=== PATIENT | female | born 1970 | race African-American/Black ===

== ENCOUNTER 2016-03-30 08:18 | Outpatient (CLI) | payer OTHER | END 2016-03-30 08:19 | disposition home or self-care (01) | DX: Z79.52 Long term (current) use of systemic steroids (principal) ==

== ENCOUNTER 2016-10-12 07:12 | Outpatient (CLI) | payer OTHER ==
--- NOTE | 2016-10-13 15:37 | Mammography Report ---
DIGITAL SCREENING MAMMOGRAM: 10/12/2016 CLINICAL INDICATION: A 46-year-old with family history of breast cancer, for screening. COMPARISON: 07/2015, 10/2013, 09/2011. TECHNIQUE: Routine CC and MLO projections were obtained of the breasts. Bilateral laterally exaggera tate craniocaudal views. FINDINGS: The breasts again demonstrate scattered fibroglandular densities bilaterally. Coarse and p unctate, typically benign calcifications are present. No suspicious masses, clustered microcalcificat ions, or regions of architectural distortion are identified. IMPRESSION: BENIGN FINDINGS. RECOMMENDATION: ROUTINE ANNUAL SCREENING UNLESS OTHERWISE CLINICALLY INDICATED. BIRADS CATEGORY 2-BENIGN FINDINGS. STANDARD QUALIFYING STATEMENTS 1. This examination was reviewed with the aid of Computer-Aided Detection (CAD). 2. A negative or benign imaging report should not delay biopsy if clinically suspicious findings are present. Consider surgical consultation if warranted. More than 5% of cancers are not identified by i maging. 3. Dense breasts may obscure an underlying neoplasm. JOB #: [id number] EXT JOB #:[id number]
== END 2016-10-12 07:13 | disposition home or self-care (01) ==
LOC: DI 07:12
PROVIDERS: ATTEND Physician Assistant Medical
DX: Z12.31 Encounter for screening mammogram for malignant neoplasm of breast (principal); Z80.3 Family history of malignant neoplasm of breast
CPT/HCPCS: 77067

== ENCOUNTER 2016-11-02 15:53 | Outpatient (CLI) | payer OTHER ==
--- NOTE | 2016-11-03 09:43 | XRAY Report ---
TWO-VIEW THORACIC SPINE: 11/02/2016 CLINICAL INDICATION: Back pain. FINDINGS: Frontal and lateral views of the thoracic spine demonstrate mild degenerative disk disease , with minimal degenerative dextroscoliosis. There is no evidence of compression fracture. No wolf zina hematoma is seen. IMPRESSION: MILD DEGENERATIVE CHANGES. JOB #: [id number] EXT JOB #:[id number]
== END 2016-11-02 15:54 | disposition home or self-care (01) ==
LOC: DI.N 15:53
PROVIDERS: ATTEND Family Medicine
DX: M54.6 Pain in thoracic spine (principal)
CPT/HCPCS: 72070

== ENCOUNTER 2018-10-11 08:27 | Outpatient (CLI) | payer OTHER ==
--- NOTE | 2018-10-11 11:34 | Ultrasound Report ---
Reason: FIBROIDS, UTERUS Procedure Date: 10/11/2018 Accession Number: [id number] / [id number] Procedure: US - Pelvic w/Transvaginal CPT Code: FULL RESULT: EXAM: PELVIC ULTRASOUND EXAM DATE: 10/11/2018 09:48 AM. CLINICAL HISTORY: Follow-up fibroids, irregular periods. COMPARISON: 12/20/2010. TECHNIQUE: Realtime transabdominal pelvic scan performed to identify the uterus and adnexa and as an overview of other pelvic structures, followed by transvaginal scan to provide greater detail of the uterus and adnexa, with static image documentation. FINDINGS: Uterus: 9.3 x 5.6 x 7.0 cm, volume 191 cc. Anteverted position. Normal overall size and echotexture. Masses: 1. Posterior mid intramural fibroid 2.1 x 1.6 x 1.9 cm. Newly identified. 2. Anterior left mid intramural fibroid 3.0 x 2.7 x 3.2 cm. Previously measured 1.2 cm. 3. A posterior lower uterine segment fibroid seen previously is no longer identified. Endometrium: 7 mm. Normal. Cervix: Unremarkable. Right Ovary: Not visualized. Left Ovary: Not visualized. Free Fluid: None. Other: None. IMPRESSION: 1. New 2.1 cm intramural fibroid and interval enlargement of 3.2 cm intramural fibroid. 2. Smaller lower uterine segment fibroid seen previously no longer identified. 3. Ovaries not visualized bilaterally, likely obscured by bowel gas. RADIA
== END 2018-10-11 08:28 | disposition home or self-care (01) ==
LOC: DI 08:27
PROVIDERS: ATTEND Obstetrics & Gynecology
DX: D25.1 Intramural leiomyoma of uterus (principal)
CPT/HCPCS: 76830; 76856

== ENCOUNTER 2018-10-29 12:30 | Outpatient (CLI) | payer OTHER ==
[2018-10-29 13:09] LABS: BASOPHILS % (AUTO) 0.5 %; EOSINOPHILS # (AUTO) 0.1 10^3/uL (0.0-0.7); EOSINOPHILS % (AUTO) 0.9 %; HGB - HEMOGLOBIN 12.9 g/dL (12.0-16.0); LYMPHOCYTES # (AUTO) 1.3 10^3/uL (1.5-3.5); LYMPHOCYTES % (AUTO) 19.9 %; MEAN CORPUSCULAR HEMOGLOBIN 29.3 pg (27.0-31.0); MEAN CORPUSCULAR HGB CONC 31.8 g/dL (32.0-36.0); MEAN CORPUSCULAR VOLUME 92.1 fL (81.0-99.0); MEAN PLATELET VOLUME 9.7 fL (7.9-10.8); MONOCYTES # (AUTO) 0.4 10^3/uL (0.0-1.0); MONOCYTES % (AUTO) 6.7 %; NEUTROPHILS # (AUTO) 4.7 10^3/uL (1.5-6.6); NEUTROPHILS % (AUTO) 71.7 %; PLT - PLATELET COUNT 288 10^3/uL (130-450); RED BLOOD COUNT 4.41 10^6/uL (4.20-5.40); RED CELL DISTRIBUTION WIDTH 13.2 % (12.0-15.0); WHITE BLOOD COUNT 6.5 x10^3/uL (4.8-10.8)
[2018-10-29 13:22] LABS: ALBUMIN 3.4 g/dL (3.2-5.5); ALBUMIN/GLOBULIN RATIO 1.1 (1.0-2.2); BILIRUBIN,TOTAL 0.4 mg/dL (0.2-1.0); CALCIUM 8.6 mg/dL (8.5-10.3); CREATININE 0.7 mg/dL (0.4-1.0); TOTAL PROTEIN 6.6 g/dL (6.7-8.2)
== END 2018-10-29 12:31 | disposition home or self-care (01) ==
LOC: LAB 12:30
PROVIDERS: ATTEND Obstetrics & Gynecology
DX: Z01.812 Encounter for preprocedural laboratory examination (principal); N92.0 Excessive and frequent menstruation with regular cycle; D25.9 Leiomyoma of uterus, unspecified
CPT/HCPCS: 36415; 80053; 85025; 86850; 86900; 86901; 86920

== ENCOUNTER 2018-10-30 09:01 | Inpatient (IN) | payer OTHER ==
[~2018-10-30 09:01] MED LIST: LACTATED RINGERS 1,000 ML IV ONE; SODIUM CHLORIDE 0.9% 250 ML IV ONE
[2018-10-30] MEDS ORDERED: CEFAZOLIN SODIUM IN 0.9 % NACL 2 GM/100 ML BAG IV ONE (09:52)
[2018-10-30] MEDS ORDERED: LACTATED RINGERS 1,000 ML IV ONE ×5 (09:58→21:19)
[2018-10-30] MEDS: PHENAZOPYRIDINE 100 MG TABLET PO ONE ×2 (10:13→18:48)
[2018-10-30 10:50] LABS: HCG UR QUAL NEGATIVE
[2018-10-30] MEDS ORDERED: GABAPENTIN 400 MG CAPSULE ONE (11:40)
[2018-10-30] MEDS ORDERED: CELECOXIB 100 MG CAPSULE PO ONE (11:41)
[2018-10-30] MEDS ORDERED: ACETAMINOPHEN 1,000 MG/100 ML 100 ML IV ONE (11:41)
[2018-10-30] MEDS ORDERED: LIDOCAINE-MPF 2% 5 ML VIAL IM ONE (11:42)
[2018-10-30] MEDS ORDERED: ONDANSETRON 4 MG/2 ML VIAL IVP ONE (11:42)
--- NOTE | 2018-10-30 12:04 | ANESTHESIA ---
Pre-Anesthesia VS, & Labs - Diagnosis menorrhagia, fibroid uterus - Procedure total laparoscopic hysterectomy Vital Signs: Temp Pulse Resp BP Pulse Ox 36.7 C 72 16 135/84 H 100 10/30/18 09:38 10/30/18 09:38 10/30/18 09:38 10/30/18 09:38 10/30/18 09:38 Height 5 ft 5 in Weight (kg) 108.5 kg - NPO >8 hours - Is Patient ?: No Home Medications and Allergies Home Medications: Ambulatory Orders Lisinopril 5 mg PO DAILY 10/29/18 Ustekinumab [Stelara] 90 mg IM 10/29/18 hydroCHLOROthiazide [Hydrochlorothiazide] 25 mg PO DAILY 10/29/18 Balsalazide Disodium [Colazal] 2,250 mg PO DAILY 10/30/18 Lisinopril 5 mg PO DAILY 10/29/18 Ustekinumab [Stelara] 90 mg IM 10/29/18 hydroCHLOROthiazide [Hydrochlorothiazide] 25 mg PO DAILY 10/29/18 Balsalazide Disodium [Colazal] 2,250 mg PO DAILY 10/30/18 Allergies/Adverse Reactions: Allergies Allergy/AdvReac Type Severity Reaction Status Date / Time No Known Drug Allergies Allergy Verified 10/29/18 12:39 Anes History & Medical History - Anesthetic History Anesthesia Complications: reports: No previous complications - Medical History Cardiovascular: reports: Hypertension Pulmonary: reports: None Gastrointestinal: reports: Crohn's disease Urinary: reports: None Musculoskeletal: reports: Osteoarthritis Endocrine/Autoimmune: reports: None Skin: reports: None Smoking Status: Never smoker - Surgical History Gynecologic: section, Tubal ligation Exam General: Alert Dental: Dentures full Upper, Partials Lower Mouth Opening: Greater than 4 Fingerbreadths Mallampati classification: II Thyromental Distance: greater than 6 cm Respiratory: Lungs clear, Normal breath sounds Cardiovascular: Regular rate, Normal S1, Normal S2 Plan Anesthesia Type: General Consent for Procedure(s) Verified and Reviewed: Yes Code Status: Attempt Resuscitation ASA classification: 2-Mild systemic disease Is this case an emergency?: No
[2018-10-30] MEDS ORDERED: METHYLENE BLUE 0.5% 50 MG/10 ML AMPULE ONE (12:11)
[2018-10-30] MEDS ORDERED: BUPIVACAINE 0.25%-EPI 1:200000 PF 30 ML VIAL ONE (12:11)
[2018-10-30] MEDS ORDERED: POTASSIUM CHLOR 10 MEQ/100 ML 10 MEQ/100 ML BAG IV ONE ×2 (12:24→13:25)
[2018-10-30] MEDS ORDERED: BUPIVACAINE 0.25%-EPI 1:200000 PF 30 ML VIAL SUBQ ONE (14:48)
[2018-10-30] MEDS ORDERED: SUGAMMADEX 200 MG/2 ML VIAL IVP ONE (17:20)
[2018-10-30] MEDS ORDERED: HYDROmorphone 0.5 MG/0.5 ML SYRINGE IVP PRN (17:27)
[2018-10-30] MEDS ORDERED: ONDANSETRON 4 MG/2 ML VIAL IVP PRN (17:27)
[2018-10-30] MEDS ORDERED: LORazepam 2 MG/ML VIAL IVP PRN (17:27)
--- NOTE | 2018-10-30 17:33 | OPERATIVE REPORT ---
Operative Report - General Procedure Date: 10/30/18 Planned Procedure: TLH BS Cysto Pre-Op Diagnosis: menorrhagia, fibroids, Hx of CHERYL III Procedure Performed: TLH BS Cysto Post Op Diagnosis: menorrhagia, fibroids, Hx of CHERYL III - Procedure Note Primary Surgeon: King ross MD Secondary Surgeon: Jess Singh MD Anesthesia Provider: Jhoan Slater CRNA Anesthesia Technique: General ET tube Pathology: Uterus tubes and bilateral ovarian cysts fluid. IV Fluids (mL): 1,800 Estimated Blood Loss (mL): 150 Urine Output (mL): 750 Complications: None
[2018-10-30] MEDS ORDERED: ACETAMINOPHEN 500 MG TABLET PO SCH (18:00)
--- NOTE | 2018-10-30 18:32 | OPERATIVE REPORT ---
DATE OF SERVICE: 10/30/2018 Physician: King Rodriguez MD PREOPERATIVE DIAGNOSES 1. Menorrhagia. 2. Fibroid uterus. 3. History of severe cervical dysplasia. POSTOPERATIVE DIAGNOSES 1. Menorrhagia. 2. Fibroid uterus. 3. History of severe cervical dysplasia. 4. Bilateral ovarian cysts. PROCEDURE PERFORMED: Laparoscopic vaginal hysterectomy with bilateral salpingectomy, drainage of ova aster cysts, and cystoscopy. SURGEON: King Rodriguez MD TACKING MACHINE OPERATOR: Belen Zambrano MD ANESTHESIA: Jhoan Slater CRNA. ANESTHETIC: General via endotracheal tube. ESTIMATED BLOOD LOSS: 150 mL IV FLUIDS: 1800 mL URINE OUTPUT: 750 mL DESCRIPTION OF PROCEDURE: Following adequate endotracheal anesthesia, patient placed in dorsal litho uriel position in Pietro stirrups. At this point, pelvic examination was performed, but was limited se condary to abdominal wall thickness. She was then prepped and draped in the usual fashion. A timeou t was performed, which concerns were addressed. These include the fact she had a large fibroid uteru s and the possibility of need to proceed on with an open procedure. At this point, the procedure was commenced. A speculum was placed in the vagina. The cervix was vis ualized, grasped with a single-tooth tenaculum. At this point, it was dilated to size 14 mm, and the n a VCare large cup was placed in the vagina. At this point, the dog food shredder operator's gloves were changed, and then following a stab wound in subumbilical area and following local anesthesia with 0.25% Marcaine, a 5 mm port was placed under direct visualization. Left and right lower quadrant ports were placed following local anesthetic and then skin incision. These were both placed under direct visualization . At this point, the uterus was encountered and noted to be filling the lower portion of the abdomen ; however, the sidewalls appeared to be free and available for laparoscopic instrumentation. It was decided to proceed on. Photographs were taken of the abdomen. She had evidence of numerous adhesion s around the right hepatic or liver area. There was also evidence of some adhesions in the pelvic ar ea. These were released without difficulty. The right cornu was grasped and then utilizing the Liga Sure, the uteroovarian ligament was cauterized and transected. The fallopian tube was cauterized and transected at its incision to the uterus. The round ligament was cauterized and transected with the LigaSure. At this point, there was an adhesion on the right anterior uterine wall. This was taken down with LigaSure. There was some difficulty with oozing. The broad ligament was cauterized, trans ected, and then with difficulty bleeding on the right side of the uterus this was cauterized, irrigat ed and transected. Eventually utilizing the LigaSure, hemostasis was achieved. The left cornu was o perated on by Dr. Zambrano. The utero-ovarian ligament was cauterized and transected. The round lig ament was cauterized and transected, and then the fallopian tube was cauterized and transected. The uterine vessels on the left hand side were cauterized and transected, all with the LigaSure. The ant erior leaf of the broad ligament was opened all the way down to the lower uterine segment and then tr aversed across the lower uterine segment. This was done to help develop a bladder flap. The posteri or leaf of the broad ligament was then cauterized and transected. This was carried all the way down to the internal os of the cervix. Because of ovarian cyst on the left side, the ovarian cyst was mechellecarrol villatoro utilizing laparoscopic needle. Roughly 12 mL of fluid was removed. There was a cyst on the righ t hand side, which was also drained with a laparoscopic needle, and roughly 10 mL were removed from t he side. The bladder was then pushed free from the lower uterine segment. Utilizing LigaSure as wel l as blunt dissection, this was carried all the way down to the cup of the VCare. The left hand side was then cauterized and transected on the transverse cervical ligament all the way down to the cup o f the VCare. The right hand side was treated in identical fashion. Harmonic scalpel was then used t o amputate the cervix from the apex of the vagina. Care was taken to try and reside as high in the v agina as possible to minimize shortening of the vagina. The anterior portion of the vagina was opene d with the Harmonic. On the posterior side, however, the LigaSure was utilized because of the close proximity of the bowel. This was done all the way until the attachments of the uterus were totally t ransected with the LigaSure. The uterus was then brought down into the vagina. At this point, the a pex of the vagina was closed utilizing Endo Stitch with V-Loc suture. This closed the apex of the va prashant well with a good pneumatic seal. At this point, the bilateral tubes were removed utilizing Liga Sure and brought through the right lower quadrant port, which had been extended to a 10 mm port. At this point, the area was inspected. Pressure was allowed to decrease, and there was no evidence of a ny large bleeders at this time. Hemostatic gauze was placed in the surgical wounds on the vagina. T he right lower quadrant incision was closed utilizing a Santiago-Sam with 0 Vicryl. Good suture c losure was noted. At this point, a cystoscope was performed, which showed evidence of good efflux of urine from both ureters. The incisions were closed utilizing 4-0 Monocryl subcuticular and then Thor mabond. The instruments and the uterus were removed from the vagina. The patient tolerated the proc edure well and was taken to recovery in stable condition. Sponge and needle counts were correct. TD: 10/30/2018 17:48
[2018-10-30] MEDS: KETOROLAC 30 MG/ML VIAL IVP PRN (18:44)
[2018-10-30] MEDS ORDERED: KETOROLAC 30 MG/ML VIAL ONE (18:52)
[2018-10-30] MEDS ORDERED: ONDANSETRON 4 MG/2 ML VIAL ONE (18:52)
[2018-10-30] MEDS ORDERED: SODIUM CHLORIDE FLUSH 0.9% 10 ML SYRINGE ONE ×3 (20:48→22:13)
[2018-10-30] MEDS ORDERED: SODIUM CHLORIDE 0.9% 1,000 ML IV ONE ×2 (21:28→22:13)
[2018-10-30] MEDS ORDERED: SODIUM CHLORIDE 0.9% 500 ML IV ONE (21:37)
[2018-10-30] MEDS: DOCUSATE SODIUM 100 MG CAPSULE PO SCH (21:41)
[2018-10-30 21:43] LABS: BASOPHILS % (AUTO) 0.1 %; HGB - HEMOGLOBIN 9.9 g/dL (12.0-16.0); LYMPHOCYTES # (AUTO) 0.5 10^3/uL (1.5-3.5); LYMPHOCYTES % (AUTO) 3.9 %; MEAN CORPUSCULAR HEMOGLOBIN 28.4 pg (27.0-31.0); MEAN CORPUSCULAR HGB CONC 30.2 g/dL (32.0-36.0); MEAN CORPUSCULAR VOLUME 94.3 fL (81.0-99.0); MEAN PLATELET VOLUME 10.4 fL (7.9-10.8); MONOCYTES # (AUTO) 0.3 10^3/uL (0.0-1.0); MONOCYTES % (AUTO) 2.5 %; NEUTROPHILS # (AUTO) 12.7 10^3/uL (1.5-6.6); NEUTROPHILS % (AUTO) 93.1 %; PLT - PLATELET COUNT 300 10^3/uL (130-450); RED BLOOD COUNT 3.48 10^6/uL (4.20-5.40); RED CELL DISTRIBUTION WIDTH 13.3 % (12.0-15.0); WHITE BLOOD COUNT 13.6 x10^3/uL (4.8-10.8)
[2018-10-30] MEDS ORDERED: SODIUM CHLORIDE 0.9% 500 ML ONE (22:13)
[2018-10-30] MEDS ORDERED: SODIUM CHLORIDE 0.9% 250 ML IV ONE (22:26)
[2018-10-30] MEDS: SODIUM CHLORIDE 0.9% 1,000 ML IV ONE ×2 (22:35→23:17)
--- NOTE | 2018-10-30 23:37 | ANESTHESIA ---
Pre-Anesthesia VS, & Labs - Diagnosis post op bleeding - Procedure diagnostic laparotomy, evaluation of post op bleed Vital Signs: Temp Pulse Resp BP Pulse Ox 36.2 C L 131 H 16 87/59 L 100 10/30/18 22:57 10/30/18 23:01 10/30/18 22:57 10/30/18 23:01 10/30/18 22:57 Height 5 ft 5 in Weight (kg) 108.5 kg - NPO Other (clears) - Is Patient ?: No - Lab Results Current Lab Results: Laboratory Tests 10/30/18 21:40: WBC 13.6 H, RBC 3.48 L, Hgb 9.9 L, Hct 32.8 L, MCV 94.3, MCH 28.4, MCHC 30.2 L, RDW 13.3, Plt Count 300, MPV 10.4, Neut # (Auto) 12.7 H, Lymph # (Auto) 0.5 L, [place] # (Auto) 0.3, Eos # (Auto) 0.0, Baso # (Auto) 0.0, Absolute Nucleated RBC 0.00, Nucleated RBC % 0.0 Fish Bones: 10/30/18 21:40 Home Medications and Allergies Home Medications: Ambulatory Orders Lisinopril 5 mg PO DAILY 10/29/18 Ustekinumab [Stelara] 90 mg IM 10/29/18 hydroCHLOROthiazide [Hydrochlorothiazide] 25 mg PO DAILY 10/29/18 Balsalazide Disodium [Colazal] 2,250 mg PO DAILY 10/30/18 Active Medications Acetaminophen (Tylenol) 1,000 mg PO Q8H [facility] Last Admin: 10/30/18 18:59 Dose: Not Given Docusate Sodium (Colace 100mg Capsule) 100 mg PO BID [facility] Last Admin: 10/30/18 21:41 Dose: Not Given Hydromorphone HCl (Dilaudid Inj Syringe) 0.5 mg IVP Q30M PRN PRN Reason: Breakthrough Pain Sodium Chloride (Normal Saline 0.9%) 1,000 mls @ 150 mls/hr IV .Q6H40M [facility] Sodium Chloride (Normal Saline 0.9%) 1,000 mls @ 999 mls/hr IV ONCE ONE Stop: 10/30/18 23:50 Last Admin: 10/30/18 22:35 Dose: 999 mls/hr Ketorolac Tromethamine (Toradol Inj (30mg)) 30 mg IVP Q6HR PRN PRN Reason: PAIN Stop: 11/04/18 17:27 Last Admin: 10/30/18 18:44 Dose: 30 mg Lorazepam (Ativan Inj (Vial)) 0.5 mg IVP Q2H PRN PRN Reason: Anxiety Ondansetron HCl (Zofran Inj) 4 mg IVP Q6HR PRN PRN Reason: Nausea / Vomiting Last Admin: 10/30/18 18:44 Dose: 4 mg Oxycodone HCl (Roxicodone) 10 mg PO Q4HR PRN PRN Reason: PAIN Lisinopril 5 mg PO DAILY 10/29/18 Ustekinumab [Stelara] 90 mg IM 10/29/18 hydroCHLOROthiazide [Hydrochlorothiazide] 25 mg PO DAILY 10/29/18 Balsalazide Disodium [Colazal] 2,250 mg PO DAILY 10/30/18 Allergies/Adverse Reactions: Allergies Allergy/AdvReac Type Severity Reaction Status Date / Time No Known Drug Allergies Allergy Verified 10/29/18 12:39 Anes History & Medical History - Anesthetic History Anesthesia Complications: reports: No previous complications - Medical History Cardiovascular: reports: Hypertension Pulmonary: reports: None Gastrointestinal: reports: Crohn's disease Urinary: reports: None Musculoskeletal: reports: Osteoarthritis Endocrine/Autoimmune: reports: None Skin: reports: None Smoking Status: Never smoker - Surgical History Gynecologic: section, Tubal ligation Exam Dental: Dentures full Upper, Partials Lower Mouth Opening: Greater than 4 Fingerbreadths Mallampati classification: II Thyromental Distance: greater than 6 cm Respiratory: Lungs clear Cardiovascular: Regular rate Plan Anesthesia Type: General Consent for Procedure(s) Verified and Reviewed: No Code Status: Attempt Resuscitation ASA classification: 2-Mild systemic disease Is this case an emergency?: Yes (consent for GA earlier today, emergent case)
--- NOTE | 2018-10-31 01:58 | OPERATIVE REPORT ---
Operative Report - General Procedure Date: 10/30/18 Planned Procedure: exploratory Laparotomy Pre-Op Diagnosis: Post Op bleeding following a TLH with BS and cysto Procedure Performed: Exploratory Laparotomy with irrigation of the Abdomin and over sewing the vaginal cuff Post Op Diagnosis: Post operative bleeding - Procedure Note Primary Surgeon: King Rodriguez MD Secondary Surgeon: Jess Singh MD Anesthesia Provider: Maye Colon CRNA Anesthesia Technique: General ET tube Pathology: None IV Fluids (mL): 1,200 (3 units packed red blood cells) Estimated Blood Loss (mL): 1,200 Urine Output (mL): 150 Indications: Shock Findings: 1200 ml clott in the pelvis and abdomin
[2018-10-31] MEDS ORDERED: SODIUM CHLORIDE 0.9% 200 ML IV ONE (02:07)
--- NOTE | 2018-10-31 02:14 | CONSULTATION NOTE ---
Referring Provider Name of Referring Provider:: Dr. King Rodriguez Consult Date: 10/31/18 Chief Complaint - Chief Complaint Chief Complaint: Fatigue History of Present Illness - Admitted From Admitted From:: Home - History Obtained From Records Reviewed: Yes History obtained from: Patient, Staff Rn Physician, EMR - History of Present Illness HPI Comment/Other: Medicine was consulted by Dr. King Rodriguez for ICU admission for acute blood loss anemia This is a 48 year old female with a past medical history significant for hypertension, crohn's disease, and uterine fibroids who was admitted yesterday for a same day surgery. The patient underwent a laparoscopic vaginal hysterectomy with bilateral salpingectomy and drainage of ovarian cysts. This was done for menorrhagia, uterine fibroids and a history of cervical dysplasia. EBL of the surgery was approximately 150mL and the patient received 1800mL of crystalloid intraoperatively. The patient tolerated the procedure well and was monitored on the floors postoperatively. While on the floors, she became hypotensive and tachycardic. Repeat labs showed a hemoglobin of 9.9 which was decreased from 12.9 the day prior. There was concern for ongoing hemorrhage and she was taken back to the OR last night for an exploratory laparotomy. There was no active bleeding noted but approximately 1200mL of clot was evacuated. The patient received 3 units of PRBC and 1 unit of FFP. After closure, she received tranexamic acid and is currently receiving a fourth unit of PRBC and a second unit of FFP. Medicine was consulted to admit the patient to the ICU for closer monitoring given the acute blood loss anemia. She currently reports feeling better than after the first procedure. She states she was very fatigued at that time and could barely open her eyes. She reports her pain is currently well controlled. Denies fevers, dyspnea, and chest pain. History - Past Medical History Cardiovascular: reports: Hypertension Respiratory: reports: None Endocrine/Autoimmune: reports: None GI: reports: Crohn's disease PROTOHISTORIAN: reports: Ovarian cysts, Fibroids : reports: None HEENT: reports: None Psych: reports: None Musculoskeletal: reports: Osteoarthritis Derm: reports: None MRSA Hx?: No - Past Surgical History /PROTOHISTORIAN: reports: section, Tubal ligation - Family & Social History Family History Comment/Other: She reports that her son has type 1 diabetes and her mother had breast cancer. She has a first cousin who has hemophilia. 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 She does not smoke, drink alcohol or use illicit drugs. Meds/Allgy - Home Medications Home Medications: Ambulatory Orders Medication Instructions Recorded Confirmed Lisinopril 5 mg PO DAILY 10/29/18 10/30/18 Ustekinumab [Stelara] 90 mg IM 10/29/18 hydroCHLOROthiazide 25 mg PO DAILY 10/29/18 10/30/18 [Hydrochlorothiazide] Balsalazide Disodium [Colazal] 2,250 mg PO DAILY 10/30/18 10/30/18 - Allergies Allergies/Adverse Reactions: Allergies Allergy/AdvReac Type Severity Reaction Status Date / Time No Known Drug Allergies Allergy Verified 10/29/18 12:39 Review of Systems - Constitutional Constitutional: reports: Fatigue, Weakness. denies: Fever, Chills - Cardiovascular Cariovascular: denies: Chest pain, Lightheadedness - Respiratory Respiratory: denies: SOB at rest, SOB with exertion - Gastrointestinal Gastrointestinal: reports: Abdominal pain. denies: Bloody stools, Nausea, Vomiting - Neurological Neurological: denies: General weakness, Focal weakness, Dizziness - Hematologic/Lymphatic Hematologic/Lymphatic: denies: Bleeding tendencies - All Other Systems All Other Systems: reports: Reviewed and negative Exam - Vital Signs Vital Signs: Vital Signs x48h Temp Pulse Resp BP Pulse Ox 10/31/18 01:54 36.2 C L 111 H 16 98/51 L 100 10/30/18 23:20 36.4 C L 113 H 16 92/64 10/30/18 23:15 36.4 C L 108 H 18 89/64 L 10/30/18 23:05 110 H 82/52 L 10/30/18 23:01 131 H 87/59 L 10/30/18 22:57 36.2 C L 119 H 16 89/52 L 100 10/30/18 22:54 36.2 C L 125 H 16 85/55 L 10/30/18 22:52 117 H 16 85/55 L 10/30/18 22:49 36.6 C 115 H 16 78/49 L 100 10/30/18 22:47 36.5 C 111 H 14 78/49 L 10/30/18 21:52 102 H 16 88/36 L 100 10/30/18 21:45 95 82/53 L 10/30/18 21:43 110 H 80/54 L 10/30/18 21:39 103 H 85/51 L 99 10/30/18 21:35 112 H 17 77/50 L 98 10/30/18 21:33 108 H 77/50 L 10/30/18 21:32 109 H 87/59 L 10/30/18 21:29 110 H 90/49 L 10/30/18 21:20 106 H 15 72/48 L 10/30/18 20:15 36.9 C 101 H 16 94/56 L 99 10/30/18 19:45 36.7 C 98 16 99/56 L 99 10/30/18 19:15 36.8 C 77 16 104/57 L 99 10/30/18 19:00 36.7 C 77 18 113/64 99 10/30/18 18:45 36.7 C 78 16 121/74 100 10/30/18 18:30 37.4 C 73 16 117/63 100 10/30/18 18:10 73 14 107/60 99 10/30/18 18:07 37.3 C 77 14 108/58 L 100 - Physical Exam General Appearance: positive: No acute distress, Alert Eyes Bilateral: positive: Normal inspection ENT: positive: ENT inspection nml Neck: positive: Nml inspection Respiratory: positive: No respiratory distress. negative: Wheezes, Rales, Rhonchi Cardiovascular: positive: Regular rate & rhythm, No murmur, Tachycardia. negative: Bradycardia Abdomen: positive: Nml bowel sounds, Tenderness (In the suprapubic region), Other (Wound vac in place). negative: Guarding, Rebound Skin: positive: No rash, Warm, Dry Extremities: positive: Full ROM, No pedal edema Neurologic/Psychiatric: positive: Oriented x3, Motor nml, Other (No focal motor deficits). negative: Disoriented to person, Disoriented to place, Disoriented to time, Weakness Conclusion/Plan - Diagnosis Diagnosis: 1) Acute blood loss anemia. 2) Hypotension. 3) Crohn's disease - Plan Plan: She had acute blood loss anemia after her laparoscopic hysterectomy and required an exploratory laparotomy. 1200mL of clot was evacuated during the ex-lap and there was no further evidence of bleeding. Her blood pressure is currently stable in the 120's as she is receiving her fourth unit of PRBC and second unit of FFP. Will check a CBC and INR after these transfusions are completed. Will trend CBC every 8 hours. Check BMP to evaluate her calcium given the number of transfusions she has received. Hold chemical DVT prophylaxis. SCD's for DVT prophylaxis. Monitor for further evidence of hemorrhage. Maintain NPO status for now. Will advance to clear liquid diet if no evidence of further bleeding. She was initially hypotensive and tachycardic secondary to her hemorrhage. This has responded well to transfusions of PRBC's and FFP. Continue to hold home antihypertensives and monitor vital signs. Will hold her home medications for crohn's at this time. Can restart her Colazal if she remains hemodynamically stable with no signs of bleeding. Stelara will be resumed on outpatient basis. - Lab Results Lab results reviewed: Yes Fish Bones: 10/30/18 21:40 - Diagnostic Imaging Results Diagnostic Imaging Results: positive: Final report reviewed
[2018-10-31] MEDS: SODIUM CHLORIDE 0.9% 1,000 ML IV SCH ×2 (03:38→10:40)
[2018-10-31] MEDS ORDERED: SODIUM CHLORIDE FLUSH 0.9% 10 ML SYRINGE ONE ×2 (03:51→18:16)
--- NOTE | 2018-10-31 03:57 | XRAY Report ---
Reason: central line placement Procedure Date: 10/30/2018 Accession Number: [id number] / [id number] Procedure: XR - Chest for Line Placement CPT Code: FULL RESULT: EXAM: CHEST RADIOGRAPHY EXAM DATE: 10/30/2018 10:50 PM. CLINICAL HISTORY: Central line placement. COMPARISON: None. TECHNIQUE: 1 view. FINDINGS: Lungs/Pleura: No alveolar consolidation or pleural effusion seen. No pneumothorax. Mediastinum: Within exam limitations, the cardiomediastinal contour is normal. Other: Right internal jugular catheter tip in the right atrium, approximately 4 cm beyond the cavoatrial junction. IMPRESSION: 1. Right IJ catheter tip in the right atrium. RADIA
--- NOTE | 2018-10-31 03:58 | XRAY Report ---
Reason: central line placement, 1st adjustment Procedure Date: 10/30/2018 Accession Number: [id number] / [id number] Procedure: XR - Chest for Line Placement CPT Code: FULL RESULT: EXAM: CHEST RADIOGRAPHY EXAM DATE: 10/30/2018 10:51 PM. CLINICAL HISTORY: Central line placement, 1st adjustment. COMPARISON: CHEST 1 VIEW 10/30/2018 10:30 PM. TECHNIQUE: 1 view. FINDINGS: Lungs/Pleura: No focal opacities evident. No pleural effusion. No pneumothorax. Mediastinum: Within exam limitations, the cardiomediastinal contour is normal. Other: Right IJ catheter tip has been adjusted and is now at or just beyond the cavoatrial junction. IMPRESSION: 1. Right IJ catheter tip at or just beyond the cavoatrial junction. RADIA
[2018-10-31 05:28] LABS: BASOPHILS % (AUTO) 0.2 %; EOSINOPHILS # (AUTO) 0.1 10^3/uL (0.0-0.7); EOSINOPHILS % (AUTO) 0.8 %; HGB - HEMOGLOBIN 11.2 g/dL (12.0-16.0); LYMPHOCYTES # (AUTO) 0.8 10^3/uL (1.5-3.5); MEAN CORPUSCULAR HGB CONC 33.8 g/dL (32.0-36.0); MEAN CORPUSCULAR VOLUME 91.7 fL (81.0-99.0); MEAN PLATELET VOLUME 10.1 fL (7.9-10.8); MONOCYTES # (AUTO) 1.1 10^3/uL (0.0-1.0); MONOCYTES % (AUTO) 8.6 %; NEUTROPHILS # (AUTO) 10.8 10^3/uL (1.5-6.6); PLT - PLATELET COUNT 159 10^3/uL (130-450); RED BLOOD COUNT 3.61 10^6/uL (4.20-5.40); RED CELL DISTRIBUTION WIDTH 14.4 % (12.0-15.0); WHITE BLOOD COUNT 12.9 x10^3/uL (4.8-10.8)
[2018-10-31 05:33] LABS: INR 1.2 (0.8-1.2); PT - PROTHROMBIN TIME 13.7 secs (9.9-12.6)
[2018-10-31 05:39] LABS: CALCIUM 7.7 mg/dL (8.5-10.3); CREATININE 0.7 mg/dL (0.4-1.0); MAGNESIUM 1.6 mg/dL (1.7-2.8); PHOSPHORUS 3.8 mg/dL (2.5-4.6)
[2018-10-31 06:41] LABS: VBG PH 7.319 (7.31-7.41)
--- NOTE | 2018-10-31 06:58 | PROCEDURE REPORT ---
DATE OF SERVICE: 10/31/2018 Physician: King Rodriguez MD PREOPERATIVE DIAGNOSES 1. Intraabdominal bleeding. 2. Shock. POSTOPERATIVE DIAGNOSES 1. Intraabdominal bleeding. 2. Shock PROCEDURE: Exploratory laparotomy with removal of intra-abdominal clot and oversewing the apex of the vagina. SURGEON: King Rodriguez MD EDITOR FARM JOURNAL: Belen Zambrano MD ANESTHESIA: Maye Colon CRNA ANESTHETIC: General via endotracheal tube. ESTIMATED BLOOD LOSS: She had 1200 mL of blood found in the belly. There were no obvious active bleeding sites. She received 1200 mL of IV fluids. She received 3 units of packed red blood cells. She received 1 unit fresh frozen plasma, 1 gram TXA. She had 150 mL urine output. DESCRIPTION OF PROCEDURE: Because of patient's unstable condition, she was taken back to the operating room in an expeditious fashion. She received ephedrine preoperatively. Patient was placed in on the operating table and, following adequate endotracheal anesthesia, patient was prepped and draped in the usual fashion. Timeout was performed. At this point, a Pfannenstiel incision was carried down through her old scar, down through the subcutaneous tissue to the fascia. The fascia was incised transversely. Then, using both blunt and sharp dissection, the rectus fascia was dissected free from the rectus. There was some bleeding on a couple perforators. These were treated with electrocautery. The peritoneum was entered high. At this point, a large amount of clot and blood was found in the abdominal cavity. This appeared to be predominantly in the pelvis, as well as the lower abdomen. This was removed out both manually, as well as the suction. An O'Aleksandar-O'Garcia retractor was placed in the abdominal cavity and bowel packed away with lap sponges, The pelvis was irrigated with sterile water to try and reveal any active bleeding sites. There were no areas that showed any pumpers at this particular time. The entire suture line, starting at the left side, traversing across the broad ligament, round ligament, as well as the areas of the ovarian vessels and the uterine arteries were inspected. There was no evidence of any bleeding. The apex of the vagina showed some small oozing, but nothing proportional to the amount of bleeding that was found in the abdominal cavity. The right side of the pelvis was inspected and, once again, this appeared to be hemostatically stable. At this point, the apex of the vagina was oversewn with 0 Vicryl. Care was taken to try and avoid any injury to the ureters. Two additional stitches were placed on the right-hand side. These areas were inspected for bleeding, none was noted. Sterile water was placed in the abdominal cavity to look for evidence of any bleeding that would be in the pelvic cavity, and none was noted. This was drained. At this time, the broad ligament sites, ovarian vessels, as well as the uterine vessels were treated with Surgicel. This was inspected. There was no evidence of any bleeding at this time. The remainder of the abdominal cavity was inspected. No bleeding noted. Clots were irrigated and removed. The O'Aleksandar-O'Garcia retractor was removed. The rectus was reapproximated with [id number] of 0 Vicryl. The rectus was inspected for bleeding, none was noted. The fascia was closed utilizing looped PDS. Subcutaneous tissue was closed with interrupted sutures of 2-0 Vicryl. The incision itself was closed utilizing 4-0 Monocryl subcuticular. A wound VAC was placed without difficulty. Patient tolerated the procedure well and was taken to Recovery in stable condition. Sponge and needle counts were correct. TD: 10/31/2018 02:18 ATILIO
--- NOTE | 2018-10-31 07:54 | PROVIDER PROGRESS NOTE ---
Assessment/Plan - Problem List (1) Hemorrhagic shock Assessment/Plan: She was hypotensive and tachycardic and needed to be transferred from [facility] to ICU last evening. The etiology of abnormal VS was founf ==d to be bleeding, into evert abd, post-op Day #0 of lap hyster and BSO. She needed to be taken back to OR to stop the bleeding. She has required 4U PRBCs and 2U FFP. H/H being followed q8h. BP has improved with iv crystalloids being infused at 150 cc/hr and after the blood transfusions. If she has stable BP and HR later today, she will be transferred out of the ICU. This was discussed with Dr Rodriguez. I updated the patient as well. (2) Post-op bleeding Assessment/Plan: She was taken back to the OR where 1200 cc of clotted blood was removed. She also received tranexamic acid She has a wound vac, no blood draining. (3) S/P laparoscopic hysterectomy Assessment/Plan: She will return to the [facility] service as she is being transferred out of the ICU. An ileus is expected, since bowel was manipulated when she needed an open surgery. Diet advancement per Dr Rodriguez. Agree with IS as well. (4) Hx of Crohn's disease Assessment/Plan: Not an active problem. - Current Meds Current Meds: Current Medications Generic Name Dose Route Start Last Admin Trade Name Freq PRN Reason Stop Dose Admin Docusate Sodium 100 mg 10/30/18 21:00 10/30/18 21:41 Colace 100mg Capsule PO Not Given BID ALEXI Sodium Chloride 1,000 mls @ 150 mls/hr 10/30/18 23:00 10/31/18 07:00 Normal Saline 0.9% IV 150 mls/hr .Q6H40M ALEXI Infusion Ketorolac Tromethamine 30 mg 10/30/18 17:28 10/30/18 18:44 Toradol Inj (30mg) IVP 11/04/18 17:27 30 mg Q6HR PRN Administration PAIN Ondansetron HCl 4 mg 10/30/18 17:27 10/30/18 18:44 Zofran Inj IVP 4 mg Q6HR PRN Administration Nausea / Vomiting - Lab Result Fish Bone Diagrams: 10/31/18 09:56 08/29/19 05:10 Subjective - Subjective Patient Reports: Feeling Better, Resting Comfortably Objective Vital Signs: Vital Signs - 24 hr 10/30/18 10/30/18 10/30/18 09:38 17:24 17:25 Temperature 36.7 C 37.5 C Heart Rate 72 80 76 Heart Rate [ Monitoring electrodes] Respiratory 16 14 15 Rate Blood Pressure 135/84 H 111/61 102/64 Blood Pressure [Right Brachial artery] O2 Saturation 100 100 100 10/30/18 10/30/18 10/30/18 17:35 17:40 17:45 Temperature 37.4 C Heart Rate 83 81 80 Heart Rate [ Monitoring electrodes] Respiratory 15 15 15 Rate Blood Pressure 112/67 105/58 L 108/65 Blood Pressure [Right Brachial artery] O2 Saturation 100 99 99 10/30/18 10/30/18 10/30/18 17:50 18:00 18:07 Temperature 37.3 C Heart Rate 76 77 77 Heart Rate [ Monitoring electrodes] Respiratory 16 18 14 Rate Blood Pressure 112/63 116/68 108/58 L Blood Pressure [Right Brachial artery] O2 Saturation 99 100 100 10/30/18 10/30/18 10/30/18 18:10 18:30 18:45 Temperature 37.4 C 36.7 C Heart Rate 73 73 78 Heart Rate [ Monitoring electrodes] Respiratory 14 16 16 Rate Blood Pressure 107/60 117/63 121/74 Blood Pressure [Right Brachial artery] O2 Saturation 99 100 100 10/30/18 10/30/18 10/30/18 19:00 19:15 19:45 Temperature 36.7 C 36.8 C 36.7 C Heart Rate 77 77 98 Heart Rate [ Monitoring electrodes] Respiratory 18 16 16 Rate Blood Pressure 113/64 104/57 L 99/56 L Blood Pressure [Right Brachial artery] O2 Saturation 99 99 99 10/30/18 10/30/18 10/30/18 20:15 21:20 21:29 Temperature 36.9 C Heart Rate 101 H 106 H 110 H Heart Rate [ Monitoring electrodes] Respiratory 16 15 Rate Blood Pressure 94/56 L 72/48 L 90/49 L Blood Pressure [Right Brachial artery] O2 Saturation 99 10/30/18 10/30/18 10/30/18 21:32 21:33 21:35 Temperature Heart Rate 109 H 108 H 112 H Heart Rate [ Monitoring electrodes] Respiratory 17 Rate Blood Pressure 87/59 L 77/50 L 77/50 L Blood Pressure [Right Brachial artery] O2 Saturation 98 10/30/18 10/30/18 10/30/18 21:39 21:43 21:45 Temperature Heart Rate 103 H 110 H 95 Heart Rate [ Monitoring electrodes] Respiratory Rate Blood Pressure 85/51 L 80/54 L 82/53 L Blood Pressure [Right Brachial artery] O2 Saturation 99 10/30/18 10/30/18 10/30/18 21:52 22:47 22:49 Temperature 36.5 C 36.6 C Heart Rate 102 H 111 H 115 H Heart Rate [ Monitoring electrodes] Respiratory 16 14 16 Rate Blood Pressure 88/36 L 78/49 L 78/49 L Blood Pressure [Right Brachial artery] O2 Saturation 100 100 10/30/18 10/30/18 10/30/18 22:52 22:54 22:57 Temperature 36.2 C L 36.2 C L Heart Rate 117 H 125 H 119 H Heart Rate [ Monitoring electrodes] Respiratory 16 16 16 Rate Blood Pressure 85/55 L 85/55 L 89/52 L Blood Pressure [Right Brachial artery] O2 Saturation 100 10/30/18 10/30/18 10/30/18 23:01 23:05 23:15 Temperature 36.4 C L Heart Rate 131 H 110 H 108 H Heart Rate [ Monitoring electrodes] Respiratory 18 Rate Blood Pressure 87/59 L 82/52 L 89/64 L Blood Pressure [Right Brachial artery] O2 Saturation 10/30/18 10/31/18 10/31/18 23:20 01:54 02:00 Temperature 36.4 C L 36.2 C L Heart Rate 113 H 111 H Heart Rate [ 102 H Monitoring electrodes] Respiratory 16 16 23 Rate Blood Pressure 92/64 98/51 L Blood Pressure 98/51 L [Right Brachial artery] O2 Saturation 100 10/31/18 10/31/18 10/31/18 02:03 02:09 02:16 Temperature 36.2 C L 36.2 C L 36.2 C L Heart Rate 99 97 105 H Heart Rate [ Monitoring electrodes] Respiratory 16 16 16 Rate Blood Pressure 91/54 L 97/51 L 95/61 Blood Pressure [Right Brachial artery] O2 Saturation 100 100 100 10/31/18 10/31/18 10/31/18 02:19 02:23 03:00 Temperature 36.2 C L 36.2 C L Heart Rate 93 95 Heart Rate [ 73 Monitoring electrodes] Respiratory 16 16 18 Rate Blood Pressure 97/55 L 100/59 L Blood Pressure 101/62 [Right Brachial artery] O2 Saturation 100 100 100 10/31/18 10/31/18 10/31/18 03:38 04:00 04:45 Temperature 36.5 C Heart Rate 78 Heart Rate [ 75 75 Monitoring electrodes] Respiratory 15 16 15 Rate Blood Pressure 98/58 L Blood Pressure 109/67 104/64 [Right Brachial artery] O2 Saturation 100 100 10/31/18 10/31/18 10/31/18 05:00 06:00 07:00 Temperature Heart Rate Heart Rate [ 72 84 89 Monitoring electrodes] Respiratory 16 16 15 Rate Blood Pressure Blood Pressure 106/68 92/54 L 100/60 [Right Brachial artery] O2 Saturation 100 99 100 Oxygen O2 Source Room air I&O (Last 24 Hrs): Intake and Output Totals x24h 10/29/18 10/30/18 10/31/18 23:59 23:59 23:59 Intake Total 3855.65 1305 Output Total 1037 715 Balance 2818.65 590 General: Alert, Oriented x3 HEENT: Mucous membr. moist/pink Neck: Supple Neuro: Non Focal Cardiovascular: Regular rate Respiratory: No respiratory distress Abdomen: Soft Extremities: No edema - Results Results: Laboratory Results WBC 12.9 x10^3/uL (4.8-10.8) H 10/31/18 05:10 RBC 3.61 10^6/uL (4.20-5.40) L 10/31/18 05:10 Hgb 11.2 g/dL (12.0-16.0) L 10/31/18 05:10 Hct 33.1 % (37.0-47.0) L 10/31/18 05:10 MCV 91.7 fL (81.0-99.0) 10/31/18 05:10 MCH 31.0 pg (27.0-31.0) 10/31/18 05:10 MCHC 33.8 g/dL (32.0-36.0) 10/31/18 05:10 RDW 14.4 % (12.0-15.0) 10/31/18 05:10 Plt Count 159 10^3/uL (130-450) 10/31/18 05:10 MPV 10.1 fL (7.9-10.8) 10/31/18 05:10 Neut # (Auto) 10.8 10^3/uL (1.5-6.6) H 10/31/18 05:10 Lymph # (Auto) 0.8 10^3/uL (1.5-3.5) L 10/31/18 05:10 [place] # (Auto) 1.1 10^3/uL (0.0-1.0) H 10/31/18 05:10 Eos # (Auto) 0.1 10^3/uL (0.0-0.7) 10/31/18 05:10 Baso # (Auto) 0.0 10^3/uL (0.0-0.1) 10/31/18 05:10 Absolute Nucleated RBC 0.00 x10^3/uL 10/31/18 05:10 Nucleated RBC % 0.0 /100WBC 10/31/18 05:10 PT 13.7 secs (9.9-12.6) H 10/31/18 05:10 INR 1.2 (0.8-1.2) 10/31/18 05:10 VBG pH 7.319 (7.31-7.41) 10/31/18 06:30 Ionized Calcium 1.08 mmol/L (1.15-1.33) L 10/31/18 06:30 Sodium 140 mmol/L (135-145) 10/31/18 05:10 Potassium 3.8 mmol/L (3.5-5.0) 10/31/18 05:10 Chloride 111 mmol/L (101-111) 10/31/18 05:10 Carbon Dioxide 22 mmol/L (21-32) 10/31/18 05:10 Anion Gap 7.0 (6-13) 10/31/18 05:10 BUN 8 mg/dL (6-20) 10/31/18 05:10 Creatinine 0.7 mg/dL (0.4-1.0) 10/31/18 05:10 Estimated GFR (MDRD) 108 (>89) 10/31/18 05:10 Glucose 188 mg/dL (70-100) H 10/31/18 05:10 Calcium 7.7 mg/dL (8.5-10.3) L 10/31/18 05:10 Phosphorus 3.8 mg/dL (2.5-4.6) 10/31/18 05:10 Magnesium 1.6 mg/dL (1.7-2.8) L 10/31/18 05:10 Ur Specific [place] 1.020 (1.002-1.030) 10/30/18 09:26 Urine HCG, Qual NEGATIVE 10/30/18 09:26
[2018-10-31] MEDS ORDERED: CALCIUM GLUCONATE 1,000 MG in SODIUM CHLORIDE 0.9% 50 ML IV ONE (08:00)
[2018-10-31] MEDS: DOCUSATE SODIUM 100 MG CAPSULE PO SCH ×2 (08:11→20:35)
[2018-10-31] MEDS: MAGNESIUM OXIDE 400 MG TABLET PO SCH ×2 (08:11→14:05)
--- NOTE | 2018-10-31 08:46 | PROVIDER PROGRESS NOTE ---
Subjective - General Admit Date: 10/31/18 Procedure Date: 10/30/18 Post Op Days: 1 Procedure Performed: TLH with BS and cysto/Exploratory Laparotomy - Review of Systems Wound/Incisions: positive: Dressing dry and intact Drain Type: Wound Vac General: positive: No symptoms (2/10 base line pain, 5/10 with movemenmt) Cardiovascular: positive: Chest pain (right shoulder pain with deep breath) Gastrointestinal: positive: Abdominal pain (incisionsal pain). negative: Flatus Psychiatric: positive: No symptoms. negative: Confusion All Other Systems: positive: Reviewed and negative Objective - Patient Data Reviewed Vital Signs: Yes Vital Signs: Vital Signs x48h Temp Pulse Pulse Resp BP BP Pulse Ox 10/31/18 08:00 89 20 77/56 L 100 10/31/18 07:00 89 15 100/60 100 10/31/18 06:00 84 16 92/54 L 99 10/31/18 05:00 72 16 106/68 100 10/31/18 04:45 75 15 104/64 100 10/31/18 04:00 75 16 109/67 100 10/31/18 03:38 36.5 C 78 15 98/58 L 10/31/18 03:00 73 18 101/62 100 10/31/18 02:23 36.2 C L 95 16 100/59 L 100 10/31/18 02:19 36.2 C L 93 16 97/55 L 100 10/31/18 02:16 36.2 C L 105 H 16 95/61 100 10/31/18 02:09 36.2 C L 97 16 97/51 L 100 10/31/18 02:03 36.2 C L 99 16 91/54 L 100 10/31/18 02:00 102 H 23 98/51 L 10/31/18 01:54 36.2 C L 111 H 16 98/51 L 100 Weight: Weight 10/29/18 10/30/18 10/31/18 23:59 23:59 23:59 Weight (kg) 108.5 kg 112 kg Intake & Output: Intake and Output Totals x24h 10/29/18 10/30/18 10/31/18 23:59 23:59 23:59 Intake Total 3855.65 2515 Output Total 1037 715 Balance 2818.65 1800 - Lab Results Lab Results: 10/31/18 05:10 10/31/18 05:10 Other Lab Results: Lab Results x24hrs 10/31/18 10/31/18 10/31/18 Range/Units 06:30 05:15 05:10 WBC (4.8-10.8) x10^3/uL RBC (4.20-5.40) 10^6/uL Hgb (12.0-16.0) g/dL Hct (37.0-47.0) % MCV (81.0-99.0) fL MCH (27.0-31.0) pg MCHC (32.0-36.0) g/dL RDW (12.0-15.0) % Plt Count (130-450) 10^3/uL MPV (7.9-10.8) fL Neut # (Auto) (1.5-6.6) 10^3/uL Lymph # (Auto) (1.5-3.5) 10^3/uL [place] # (Auto) (0.0-1.0) 10^3/uL Eos # (Auto) (0.0-0.7) 10^3/uL Baso # (Auto) (0.0-0.1) 10^3/uL Absolute Nucleated RBC x10^3/uL Nucleated RBC % /100WBC PT 13.7 H (9.9-12.6) secs INR 1.2 (0.8-1.2) VBG pH 7.319 (7.31-7.41) Ionized Calcium 1.08 L (1.15-1.33) mmol/L Sodium (135-145) mmol/L Potassium (3.5-5.0) mmol/L Chloride (101-111) mmol/L Carbon Dioxide (21-32) mmol/L Anion Gap (6-13) BUN (6-20) mg/dL Creatinine (0.4-1.0) mg/dL Estimated GFR (MDRD) (>89) Glucose (70-100) mg/dL Calcium (8.5-10.3) mg/dL Phosphorus (2.5-4.6) mg/dL Magnesium (1.7-2.8) mg/dL Ur Specific [place] (1.002-1.030) Urine HCG, Qual Nasal Screen MRSA (PCR) NEGATIVE (NEGATIVE) 10/31/18 10/31/18 10/30/18 Range/Units 05:10 05:10 21:40 WBC 12.9 H 13.6 H (4.8-10.8) x10^3/uL RBC 3.61 L 3.48 L (4.20-5.40) 10^6/uL Hgb 11.2 L 9.9 L (12.0-16.0) g/dL Hct 33.1 L 32.8 L (37.0-47.0) % MCV 91.7 94.3 (81.0-99.0) fL MCH 31.0 28.4 (27.0-31.0) pg MCHC 33.8 30.2 L (32.0-36.0) g/dL RDW 14.4 13.3 (12.0-15.0) % Plt Count 159 300 (130-450) 10^3/uL MPV 10.1 10.4 (7.9-10.8) fL Neut # (Auto) 10.8 H 12.7 H (1.5-6.6) 10^3/uL Lymph # (Auto) 0.8 L 0.5 L (1.5-3.5) 10^3/uL [place] # (Auto) 1.1 H 0.3 (0.0-1.0) 10^3/uL Eos # (Auto) 0.1 0.0 (0.0-0.7) 10^3/uL Baso # (Auto) 0.0 0.0 (0.0-0.1) 10^3/uL Absolute Nucleated RBC 0.00 0.00 x10^3/uL Nucleated RBC % 0.0 0.0 /100WBC PT (9.9-12.6) secs INR (0.8-1.2) VBG pH (7.31-7.41) Ionized Calcium (1.15-1.33) mmol/L Sodium 140 (135-145) mmol/L Potassium 3.8 (3.5-5.0) mmol/L Chloride 111 (101-111) mmol/L Carbon Dioxide 22 (21-32) mmol/L Anion Gap 7.0 (6-13) BUN 8 (6-20) mg/dL Creatinine 0.7 (0.4-1.0) mg/dL Estimated GFR (MDRD) 108 (>89) Glucose 188 H (70-100) mg/dL Calcium 7.7 L (8.5-10.3) mg/dL Phosphorus 3.8 (2.5-4.6) mg/dL Magnesium 1.6 L (1.7-2.8) mg/dL Ur Specific [place] (1.002-1.030) Urine HCG, Qual Nasal Screen MRSA (PCR) (NEGATIVE) 10/30/18 Range/Units 09:26 WBC (4.8-10.8) x10^3/uL RBC (4.20-5.40) 10^6/uL Hgb (12.0-16.0) g/dL Hct (37.0-47.0) % MCV (81.0-99.0) fL MCH (27.0-31.0) pg MCHC (32.0-36.0) g/dL RDW (12.0-15.0) % Plt Count (130-450) 10^3/uL MPV (7.9-10.8) fL Neut # (Auto) (1.5-6.6) 10^3/uL Lymph # (Auto) (1.5-3.5) 10^3/uL [place] # (Auto) (0.0-1.0) 10^3/uL Eos # (Auto) (0.0-0.7) 10^3/uL Baso # (Auto) (0.0-0.1) 10^3/uL Absolute Nucleated RBC x10^3/uL Nucleated RBC % /100WBC PT (9.9-12.6) secs INR (0.8-1.2) VBG pH (7.31-7.41) Ionized Calcium (1.15-1.33) mmol/L Sodium (135-145) mmol/L Potassium (3.5-5.0) mmol/L Chloride (101-111) mmol/L Carbon Dioxide (21-32) mmol/L Anion Gap (6-13) BUN (6-20) mg/dL Creatinine (0.4-1.0) mg/dL Estimated GFR (MDRD) (>89) Glucose (70-100) mg/dL Calcium (8.5-10.3) mg/dL Phosphorus (2.5-4.6) mg/dL Magnesium (1.7-2.8) mg/dL Ur Specific [place] 1.020 (1.002-1.030) Urine HCG, Qual NEGATIVE Nasal Screen MRSA (PCR) (NEGATIVE) - Current Medications Current Medications: Current Medications Generic Name Dose Route Start Last Admin Trade Name Freq PRN Reason Stop Dose Admin Docusate Sodium 100 mg 10/30/18 21:00 10/31/18 08:11 Colace 100mg Capsule PO 100 mg BID ALEXI Administration Sodium Chloride 1,000 mls @ 150 mls/hr 10/30/18 23:00 10/31/18 08:00 Normal Saline 0.9% IV 150 mls/hr .Q6H40M ALEXI Infusion Ketorolac Tromethamine 30 mg 10/30/18 17:28 10/30/18 18:44 Toradol Inj (30mg) IVP 11/04/18 17:27 30 mg Q6HR PRN Administration PAIN Magnesium Oxide 400 mg 10/31/18 08:00 10/31/18 08:11 Mag Ox PO 10/31/18 14:01 400 mg Q6H ALEXI Administration Protocol Ondansetron HCl 4 mg 10/30/18 17:27 10/30/18 18:44 Zofran Inj IVP 4 mg Q6HR PRN Administration Nausea / Vomiting - Physical Exam Wound/Incisions: positive: Dressing dry and intact, No drainage (wound vac) General Appearance: positive: No acute distress, Alert Respiratory: positive: Chest non-tender, No respiratory distress, Breath sounds nml Cardiovascular: positive: Regular rate & rhythm, No murmur, No gallop Abdomen: positive: Nml bowel sounds, No distention, Tenderness (mild generalized) Back: negative: CVA tenderness (R), CVA tenderness (L) Skin: positive: Color nml, No rash, Warm, Dry Neurologic/Psychiatric: positive: Oriented x3 Impression/Plan - Problem List Problem List: 1. S/P TLH with BS and cysto. Post operative bleed. with Ex Lap. 2. Anemia S/P Transfusion with 4 packs RBC and FFP. Stabilized Hgb 11. 3. Hypotension stabilized 4. Tachycardia 90s. 5. Post Op ileus normal bowel sounds no flatus yet stay clear liquids. 6. pulmonary toilet incentive spirometry will follow while in ICU
[2018-10-31] MEDS: KETOROLAC 30 MG/ML VIAL IVP PRN (09:21)
[2018-10-31 10:09] LABS: HGB - HEMOGLOBIN 10.1 g/dL (12.0-16.0)
[2018-10-31] MEDS: HYDROmorphone 0.5 MG/0.5 ML SYRINGE IVP PRN ×2 (11:04→15:20)
[2018-10-31] MEDS: oxyCODONE 5 MG TABLET PO PRN ×3 (11:52→20:34)
[2018-10-31 18:14] LABS: HGB - HEMOGLOBIN 9.3 g/dL (12.0-16.0)
[2018-11-01] MEDS: SODIUM CHLORIDE 0.9% 1,000 ML IV SCH ×3 (00:43→20:37)
[2018-11-01] MEDS: oxyCODONE 5 MG TABLET PO PRN ×5 (00:46→20:42)
[2018-11-01] MEDS: SODIUM CHLORIDE FLUSH 0.9% 10 ML SYRINGE IVP PRN ×2 (02:10→04:10)
[2018-11-01 02:18] LABS: HGB - HEMOGLOBIN 8.1 g/dL (12.0-16.0)
[2018-11-01 05:08] LABS: CALCIUM 7.6 mg/dL (8.5-10.3); CREATININE 0.5 mg/dL (0.4-1.0); MAGNESIUM 1.8 mg/dL (1.7-2.8); PHOSPHORUS 1.7 mg/dL (2.5-4.6)
[2018-11-01 05:24] LABS: HGB - HEMOGLOBIN 8.1 g/dL (12.0-16.0); MEAN CORPUSCULAR HEMOGLOBIN 30.3 pg (27.0-31.0); MEAN CORPUSCULAR HGB CONC 32.7 g/dL (32.0-36.0); MEAN CORPUSCULAR VOLUME 92.9 fL (81.0-99.0); MEAN PLATELET VOLUME 10.9 fL (7.9-10.8); RED BLOOD COUNT 2.67 10^6/uL (4.20-5.40); RED CELL DISTRIBUTION WIDTH 14.6 % (12.0-15.0); WHITE BLOOD COUNT 6.3 x10^3/uL (4.8-10.8)
[2018-11-01] MEDS ORDERED: POTASSIUM CHLORIDE 20 MEQ TABLET PO ONE (06:03)
[2018-11-01 06:25] LABS: ALBUMIN 2.5 g/dL (3.2-5.5); BILIRUBIN,DIRECT 0.1 mg/dL (0.1-0.5); BILIRUBIN,TOTAL 0.5 mg/dL (0.2-1.0); TOTAL PROTEIN 4.8 g/dL (6.7-8.2)
[2018-11-01] MEDS ORDERED: NEUTRA-PHOS 250 MG TABLET PO ONE (07:00)
--- NOTE | 2018-11-01 08:45 | PROVIDER PROGRESS NOTE ---
Subjective - General Admit Date: 10/31/18 Procedure Date: 10/30/18 Post Op Days: 2 Procedure Performed: TLH with BS and cysto/Exploratory Laparotomy - Review of Systems Wound/Incisions: positive: Dressing dry and intact, No drainage (wound vac) Drain Type: Wound Vac General: positive: No symptoms (5/10 with movemenmt notes good pain control. Passing flatus. swann draining) Pulmonary: positive: No symptoms Cardiovascular: positive: No symptoms Gastrointestinal: positive: No symptoms, Abdominal pain (incisionsal pain). negative: Flatus Psychiatric: positive: No symptoms. negative: Confusion All Other Systems: positive: Reviewed and negative Objective - Patient Data Reviewed Vital Signs: Yes Vital Signs: Vital Signs x48h Temp Pulse Pulse Resp BP Pulse Ox 11/01/18 07:31 37.4 C 101 H 102 H 18 127/63 97 11/01/18 04:38 37.0 C 100 18 118/59 L 96 Weight: Weight 10/30/18 10/31/18 11/01/18 23:59 23:59 23:59 Weight (kg) 108.5 kg 112 kg 118 kg Intake & Output: Intake and Output Totals x24h 10/30/18 10/31/18 11/01/18 23:59 23:59 23:59 Intake Total 3855.65 5085 235 Output Total 1037 1535 1325 Balance 2818.65 3550 -1090 - Lab Results Lab Results: 11/01/18 04:05 11/01/18 04:05 Other Lab Results: Lab Results x24hrs 11/01/18 11/01/18 11/01/18 Range/Units 04:05 04:05 04:05 WBC 6.3 (4.8-10.8) x10^3/uL RBC 2.67 L (4.20-5.40) 10^6/uL Hgb 8.1 L (12.0-16.0) g/dL Hct 24.8 L (37.0-47.0) % MCV 92.9 (81.0-99.0) fL MCH 30.3 (27.0-31.0) pg MCHC 32.7 (32.0-36.0) g/dL RDW 14.6 (12.0-15.0) % Plt Count 147 (130-450) 10^3/uL MPV 10.9 H (7.9-10.8) fL Sodium 141 (135-145) mmol/L Potassium 3.0 L (3.5-5.0) mmol/L Chloride 111 (101-111) mmol/L Carbon Dioxide 26 (21-32) mmol/L Anion Gap 4.0 L (6-13) BUN 6 (6-20) mg/dL Creatinine 0.5 (0.4-1.0) mg/dL Estimated GFR (MDRD) 160 (>89) Glucose 109 H (70-100) mg/dL Calcium 7.6 L (8.5-10.3) mg/dL Phosphorus 1.7 L (2.5-4.6) mg/dL Magnesium 1.8 (1.7-2.8) mg/dL Total Bilirubin 0.5 (0.2-1.0) mg/dL Direct Bilirubin 0.1 (0.1-0.5) mg/dL AST 27 (10-42) IU/L ALT 13 (10-60) IU/L Alkaline Phosphatase 39 L (42-121) IU/L Total Protein 4.8 L (6.7-8.2) g/dL Albumin 2.5 L (3.2-5.5) g/dL Globulin 2.3 (2.1-4.2) g/dL 11/01/18 10/31/18 10/31/18 Range/Units 02:10 18:09 09:56 WBC (4.8-10.8) x10^3/uL RBC (4.20-5.40) 10^6/uL Hgb 8.1 L 9.3 L 10.1 L (12.0-16.0) g/dL Hct 25.0 L 28.2 L 30.0 L (37.0-47.0) % MCV (81.0-99.0) fL MCH (27.0-31.0) pg MCHC (32.0-36.0) g/dL RDW (12.0-15.0) % Plt Count (130-450) 10^3/uL MPV (7.9-10.8) fL Sodium (135-145) mmol/L Potassium (3.5-5.0) mmol/L Chloride (101-111) mmol/L Carbon Dioxide (21-32) mmol/L Anion Gap (6-13) BUN (6-20) mg/dL Creatinine (0.4-1.0) mg/dL Estimated GFR (MDRD) (>89) Glucose (70-100) mg/dL Calcium (8.5-10.3) mg/dL Phosphorus (2.5-4.6) mg/dL Magnesium (1.7-2.8) mg/dL Total Bilirubin (0.2-1.0) mg/dL Direct Bilirubin (0.1-0.5) mg/dL AST (10-42) IU/L ALT (10-60) IU/L Alkaline Phosphatase (42-121) IU/L Total Protein (6.7-8.2) g/dL Albumin (3.2-5.5) g/dL Globulin (2.1-4.2) g/dL - Current Medications Current Medications: Current Medications Generic Name Dose Route Start Last Admin Trade Name Freq PRN Reason Stop Dose Admin Docusate Sodium 100 mg 10/30/18 21:00 10/31/18 20:35 Colace 100mg Capsule PO 100 mg BID ALEXI Administration Hydromorphone HCl 0.5 mg 10/31/18 02:45 10/31/18 15:20 Dilaudid Inj Syringe IVP 0.5 mg Q3H PRN Administration Breakthrough Pain Sodium Chloride 1,000 mls @ 75 mls/hr 10/31/18 17:12 11/01/18 07:02 Normal Saline 0.9% IV 75 mls/hr .[id number] ALEXI Administration Ketorolac Tromethamine 30 mg 10/30/18 17:28 10/31/18 09:21 Toradol Inj (30mg) IVP 11/04/18 17:27 30 mg Q6HR PRN Administration PAIN Ondansetron HCl 4 mg 10/30/18 17:27 10/30/18 18:44 Zofran Inj IVP 4 mg Q6HR PRN Administration Nausea / Vomiting Oxycodone HCl 10 mg 10/30/18 17:27 11/01/18 04:52 Roxicodone PO 10 mg Q4HR PRN Administration PAIN Sodium Chloride 10 ml 10/31/18 22:41 11/01/18 04:10 Normal Saline Flush 0.9% IVP 20 ml PRN PRN Administration NEEDED PER PROVIDER ORDERS - Physical Exam Wound/Incisions: positive: Healing well, Dressing dry and intact, No drainage General Appearance: positive: No acute distress, Alert Respiratory: positive: Chest non-tender, No respiratory distress, Breath sounds nml Cardiovascular: positive: Regular rate & rhythm, No murmur, No gallop Abdomen: positive: Nml bowel sounds, No distention, Tenderness (mild) Back: negative: CVA tenderness (R), CVA tenderness (L) Skin: positive: Color nml, No rash, Warm, Dry Extremities: negative: Calf tenderness, Naomi's sign/cords Neurologic/Psychiatric: positive: Oriented x3 Impression/Plan - Problem List Problem List: POD #2 progressing. S/P TLH with BS cyst and Ex Lap Anemia stable at 8.1 SP transfusion with 4 units PRBC. if fallf below 8 will transfuse. GI returning to function. advance diet hypokalemia. KCL and Kphos. Ambulate Fluid diuresing. swann out.
[2018-11-01] MEDS: DOCUSATE SODIUM 100 MG CAPSULE PO SCH ×2 (08:50→20:39)
[2018-11-01] MEDS: FERROUS SULFATE 300 MG/5 ML UDC PO SCH (08:50)
[2018-11-01] MEDS ORDERED: POTASSIUM CHLORIDE 10 MEQ CAPSULE PO SCH (09:00)
[2018-11-01 10:03] LABS: HGB - HEMOGLOBIN 8.7 g/dL (12.0-16.0)
--- NOTE | 2018-11-01 10:46 | PROVIDER PROGRESS NOTE ---
Assessment/Plan - Problem List (1) Post-op bleeding Assessment/Plan: Hgb has plateaued at 8-8.5. Will start orsl iron replacement, using liquid formulation due to clear liquid diet orders. Follow H/H q8h today, then daily CBC til DCh, is advised. (2) S/P laparoscopic hysterectomy Assessment/Plan: sHE HAD A POST-OP ILEUS. Advancing diet OKd by Dr Rodriguez: will order a slow advance to avoid N/V. This was explained to the patient and she agrees. (3) Hypokalemia Assessment/Plan: Suspected low Potassium due to hemodilution, since the iv hydration contains no K and also K losses from being on her pre-hospital HCTZ and currently low nutritional K on clear liquids. Replace with K iv rides, since po KCl tablets may cause stomach upset. Recheck K later today. (4) Hx of essential hypertension Assessment/Plan: Holding her home BP meds currently, due to normal BPs without them (5) Hx of Crohn's disease Assessment/Plan: Quiescent currently. (6) Hemorrhagic shock Assessment/Plan: Shock has resolved. Still holding her home BP meds however. - Current Meds Current Meds: Current Medications Generic Name Dose Route Start Last Admin Trade Name Freq PRN Reason Stop Dose Admin Docusate Sodium 100 mg 10/30/18 21:00 11/01/18 08:50 Colace 100mg Capsule PO 100 mg BID ALEXI Administration Ferrous Sulfate 300 mg 11/01/18 08:00 11/01/18 08:50 Feosol Liquid PO 300 mg DAILYWM ALEXI Administration Hydromorphone HCl 0.5 mg 10/31/18 02:45 10/31/18 15:20 Dilaudid Inj Syringe IVP 0.5 mg Q3H PRN Administration Breakthrough Pain Sodium Chloride 1,000 mls @ 75 mls/hr 10/31/18 17:12 11/01/18 07:02 Normal Saline 0.9% IV 75 mls/hr .[id number] ALEXI Administration Ketorolac Tromethamine 30 mg 10/30/18 17:28 10/31/18 09:21 Toradol Inj (30mg) IVP 11/04/18 17:27 30 mg Q6HR PRN Administration PAIN Ondansetron HCl 4 mg 10/30/18 17:27 10/30/18 18:44 Zofran Inj IVP 4 mg Q6HR PRN Administration Nausea / Vomiting Oxycodone HCl 10 mg 10/30/18 17:27 11/01/18 09:32 Roxicodone PO 10 mg Q4HR PRN Administration PAIN Sodium Chloride 10 ml 10/31/18 22:41 11/01/18 04:10 Normal Saline Flush 0.9% IVP 20 ml PRN PRN Administration NEEDED PER PROVIDER ORDERS - Lab Result Fish Bone Diagrams: 11/01/18 09:55 11/01/18 04:05 - Additional Planning My Orders: My Active Orders 11/01/18 08:00 Ferrous Sulfate Liquid [Feosol Liquid] 300 mg PO DAILYWM 11/01/18 10:00 Potassium Chlor 10 Meq/100 ml [Potassium Chloride] 10 meq in 100 ml IV Q1H 11/01/18 15:00 POTASSIUM [CHEM] Timed 11/01/18 Dinner DIET [Soft (Low Fiber) Diet] [DIET] 11/01/18 Lunch DIET [Full Liquid Diet] [DIET] Subjective - Subjective Patient Reports: Feeling Better, Resting Comfortably, Other (Is passing flatus) Objective Vital Signs: Vital Signs - 24 hr 10/31/18 10/31/18 10/31/18 11:00 12:00 13:00 Temperature Heart Rate [ Brachial] Heart Rate [ 87 88 89 Monitoring electrodes] Respiratory 16 18 20 Rate Blood Pressure 114/55 L 100/54 L 104/51 L [Right Brachial artery] O2 Saturation 97 96 98 10/31/18 10/31/18 11/01/18 16:17 20:00 00:05 Temperature 36.9 C 36.9 C 36.5 C Heart Rate [ 90 81 97 Brachial] Heart Rate [ Monitoring electrodes] Respiratory 20 20 18 Rate Blood Pressure 109/54 L 109/54 L 118/57 L [Right Brachial artery] O2 Saturation 100 99 94 11/01/18 11/01/18 04:38 07:31 Temperature 37.0 C 37.4 C Heart Rate [ 100 101 H Brachial] Heart Rate [ 102 H Monitoring electrodes] Respiratory 18 18 Rate Blood Pressure 118/59 L 127/63 [Right Brachial artery] O2 Saturation 96 97 Oxygen O2 Source Room air I&O (Last 24 Hrs): Intake and Output Totals x24h 10/30/18 10/31/1819 23:59 23:59 23:59 Intake Total 3855.65 5085 535 Output Total 1037 1535 1700 Balance 2818.65 3550 -1165 General: Alert, Oriented x3 HEENT: Mucous membr. moist/pink Neck: Supple Neuro: Non Focal Cardiovascular: Regular rate Respiratory: No respiratory distress Abdomen: Normal bowel sounds, Soft - Results Results: Laboratory Results WBC 6.3 x10^3/uL (4.8-10.8) 11/01/18 04:05 RBC 2.67 10^6/uL (4.20-5.40) L 11/01/18 04:05 Hgb 8.7 g/dL (12.0-16.0) L 11/01/18 09:55 Hct 26.0 % (37.0-47.0) L 11/01/18 09:55 MCV 92.9 fL (81.0-99.0) 11/01/18 04:05 MCH 30.3 pg (27.0-31.0) 11/01/18 04:05 MCHC 32.7 g/dL (32.0-36.0) 11/01/18 04:05 RDW 14.6 % (12.0-15.0) 11/01/18 04:05 Plt Count 147 10^3/uL (130-450) 11/01/18 04:05 MPV 10.9 fL (7.9-10.8) H 11/01/18 04:05 Neut # (Auto) 10.8 10^3/uL (1.5-6.6) H 10/31/18 05:10 Lymph # (Auto) 0.8 10^3/uL (1.5-3.5) L 10/31/18 05:10 [place] # (Auto) 1.1 10^3/uL (0.0-1.0) H 10/31/18 05:10 Eos # (Auto) 0.1 10^3/uL (0.0-0.7) 10/31/18 05:10 Baso # (Auto) 0.0 10^3/uL (0.0-0.1) 10/31/18 05:10 Absolute Nucleated RBC 0.00 x10^3/uL 10/31/18 05:10 Nucleated RBC % 0.0 /100WBC 10/31/18 05:10 PT 13.7 secs (9.9-12.6) H 10/31/18 05:10 INR 1.2 (0.8-1.2) 10/31/18 05:10 VBG pH 7.319 (7.31-7.41) 10/31/18 06:30 Ionized Calcium 1.08 mmol/L (1.15-1.33) L 10/31/18 06:30 Sodium 141 mmol/L (135-145) 11/01/18 04:05 Potassium 3.0 mmol/L (3.5-5.0) L 11/01/18 04:05 Chloride 111 mmol/L (101-111) 11/01/18 04:05 Carbon Dioxide 26 mmol/L (21-32) 11/01/18 04:05 Anion Gap 4.0 (6-13) L 11/01/18 04:05 BUN 6 mg/dL (6-20) 11/01/18 04:05 Creatinine 0.5 mg/dL (0.4-1.0) 11/01/18 04:05 Estimated GFR (MDRD) 160 (>89) 11/01/18 04:05 Glucose 109 mg/dL (70-100) H 11/01/18 04:05 Calcium 7.6 mg/dL (8.5-10.3) L 11/01/18 04:05 Phosphorus 1.7 mg/dL (2.5-4.6) L 11/01/18 04:05 Magnesium 1.8 mg/dL (1.7-2.8) 11/01/18 04:05 Total Bilirubin 0.5 mg/dL (0.2-1.0) 11/01/18 04:05 Direct Bilirubin 0.1 mg/dL (0.1-0.5) 11/01/18 04:05 AST 27 IU/L (10-42) 11/01/18 04:05 ALT 13 IU/L (10-60) 11/01/18 04:05 Alkaline Phosphatase 39 IU/L (42-121) L 11/01/18 04:05 Total Protein 4.8 g/dL (6.7-8.2) L 11/01/18 04:05 Albumin 2.5 g/dL (3.2-5.5) L 11/01/18 04:05 Globulin 2.3 g/dL (2.1-4.2) 11/01/18 04:05 Ur Specific [place] 1.020 (1.002-1.030) 10/30/18 09:26 Urine HCG, Qual NEGATIVE 10/30/18 09:26 Nasal Screen MRSA (PCR) NEGATIVE (NEGATIVE) 10/31/18 05:15
[2018-11-01] MEDS: POTASSIUM CHLOR 10 MEQ/100 ML 10 MEQ/100 ML BAG IV SCH ×3 (11:06→13:48)
[2018-11-01] MEDS ORDERED: NEUTRA-PHOS 250 MG TABLET PO SCH (12:00)
[2018-11-01] MEDS ORDERED: CALCIUM CHLORIDE ABBOJECT 1000MG/10 ML SYRINGE IVP ONE (12:37)
[2018-11-01] MEDS ORDERED: PROPOFOL 200 MG/20 ML VIAL IVP ONE (12:37)
[2018-11-01] MEDS ORDERED: KETAMINE 500 MG/10 ML VIAL IVP ONE (12:37)
[2018-11-01] MEDS ORDERED: MIDAZOLAM 2 MG/2 ML VIAL IVP ONE ×2 (12:37→13:32)
[2018-11-01] MEDS ORDERED: ROCURONIUM 50 MG/5 ML VIAL IVP ONE (12:37)
[2018-11-01] MEDS ORDERED: NEOSTIGMINE 1 MG/1 ML 10 ML MDV IVP ONE (12:37)
[2018-11-01] MEDS ORDERED: fentaNYL 100 MCG/2 ML VIAL IVP ONE (13:32)
[2018-11-01] MEDS ORDERED: DEXAMETHASONE 4 MG/ML VIAL IVP ONE (13:32)
--- NOTE | 2018-11-01 19:13 | PROVIDER PROGRESS NOTE ---
Subjective - Prog Note Date Prog Note Date: 11/01/18 Prog Note Time: 17:00 - Subjective Pt reports feeling: Improved (Lester is doing well this afternoon. Voiding without issue. Minimal vaginal bleeding. Pain well managed. Tolerating regular diet.Has flatus. No BM yet. Central line remains in place.No fevers chills or malaise.) Objective - Vital Signs/Intake & Output Reviewed Vital Signs: Yes Vital Signs: Vital Signs x48h Temp Pulse Resp BP Pulse Ox 11/01/18 15:31 99.7 F H 109 H 18 143/78 H 98 11/01/18 13:20 99.5 F 99 16 123/71 97 Intake & Output: Intake & Output 10/29/18 10/30/18 10/31/18 11/01/18 23:59 23:59 23:59 23:59 Intake Total 3855.65 5085 1285 Output Total 1037 1535 2500 Balance 2818.65 8030 1215 - Objective General Appearance: positive: No acute distress ENT: positive: Other (Central line insertion clean dry intact with Tegaderm in place) Neck: positive: Nml inspection (Central line placement clean, dry, intact without erythema, induration, or drainage. Tegaderm in place) Respiratory: positive: Chest non-tender, No respiratory distress Cardiovascular: positive: Regular rate & rhythm Abdomen: positive: Non-tender, Other (Port sites clean dry and intact. Wound VAC in place over her Pfannenstiel incision. No erythema or induration or warmth identified) Back: positive: Nml inspection Skin: positive: Color nml, Warm Extremities: positive: Non-tender, No pedal edema Neurologic/Psychiatric: positive: Oriented x3 - Lab Results Fish Bones: 11/01/18 09:55 11/01/18 15:00 Other Labs: Lab Results x24hrs 11/01/18 11/01/18 11/01/18 Range/Units 15:00 09:55 04:05 WBC (4.8-10.8) x10^3/uL RBC (4.20-5.40) 10^6/uL Hgb 8.7 L (12.0-16.0) g/dL Hct 26.0 L (37.0-47.0) % MCV (81.0-99.0) fL MCH (27.0-31.0) pg MCHC (32.0-36.0) g/dL RDW (12.0-15.0) % Plt Count (130-450) 10^3/uL MPV (7.9-10.8) fL Sodium (135-145) mmol/L Potassium 4.1 (3.5-5.0) mmol/L Chloride (101-111) mmol/L Carbon Dioxide (21-32) mmol/L Anion Gap (6-13) BUN (6-20) mg/dL Creatinine (0.4-1.0) mg/dL Estimated GFR (MDRD) (>89) Glucose (70-100) mg/dL Calcium (8.5-10.3) mg/dL Phosphorus (2.5-4.6) mg/dL Magnesium (1.7-2.8) mg/dL Total Bilirubin 0.5 (0.2-1.0) mg/dL Direct Bilirubin 0.1 (0.1-0.5) mg/dL AST 27 (10-42) IU/L ALT 13 (10-60) IU/L Alkaline Phosphatase 39 L (42-121) IU/L Total Protein 4.8 L (6.7-8.2) g/dL Albumin 2.5 L (3.2-5.5) g/dL Globulin 2.3 (2.1-4.2) g/dL 11/01/18 11/01/18 11/01/18 Range/Units 04:05 04:05 02:10 WBC 6.3 (4.8-10.8) x10^3/uL RBC 2.67 L (4.20-5.40) 10^6/uL Hgb 8.1 L 8.1 L (12.0-16.0) g/dL Hct 24.8 L 25.0 L (37.0-47.0) % MCV 92.9 (81.0-99.0) fL MCH 30.3 (27.0-31.0) pg MCHC 32.7 (32.0-36.0) g/dL RDW 14.6 (12.0-15.0) % Plt Count 147 (130-450) 10^3/uL MPV 10.9 H (7.9-10.8) fL Sodium 141 (135-145) mmol/L Potassium 3.0 L (3.5-5.0) mmol/L Chloride 111 (101-111) mmol/L Carbon Dioxide 26 (21-32) mmol/L Anion Gap 4.0 L (6-13) BUN 6 (6-20) mg/dL Creatinine 0.5 (0.4-1.0) mg/dL Estimated GFR (MDRD) 160 (>89) Glucose 109 H (70-100) mg/dL Calcium 7.6 L (8.5-10.3) mg/dL Phosphorus 1.7 L (2.5-4.6) mg/dL Magnesium 1.8 (1.7-2.8) mg/dL Total Bilirubin (0.2-1.0) mg/dL Direct Bilirubin (0.1-0.5) mg/dL AST (10-42) IU/L ALT (10-60) IU/L Alkaline Phosphatase (42-121) IU/L Total Protein (6.7-8.2) g/dL Albumin (3.2-5.5) g/dL Globulin (2.1-4.2) g/dL Assessment/Plan - Problem List (1) S/P laparoscopic hysterectomy Impression: Ms. Canas is postop day 2 status post total laparoscopic hysterectomy and postop takeback for postoperative bleed. Heme: Hematocrit stable at 26. Status post 2 units PRBCs. Currently asymptomatic; no dizziness or lightheadedness with standing, no tachycardia, no shortness of breath. Postop goals; -Up and ambulating -Tolerating regular diet -Voiding with minimal vaginal bleeding- -Pain is well managed -Flatus indicates return of bowel function We will continue to monitor overnight. Anticipate discharge tomorrow morning or Sunday. Access: -Central line catheter remains in place. IV fluids limit to NS 75 cc an hour -Now normotensive. Will place peripheral peripheral IV to maintain access. TKO/Hep-Lock -Will order removal of central line catheter once peripheral access is obtained. Plan was discussed with patient at bedside. We will continue to monitor overnight.
[2018-11-02] MEDS: oxyCODONE 5 MG TABLET PO PRN ×3 (02:53→20:52)
[2018-11-02 06:21] LABS: BASOPHILS % (AUTO) 0.3 %; EOSINOPHILS # (AUTO) 0.1 10^3/uL (0.0-0.7); EOSINOPHILS % (AUTO) 1.4 %; HGB - HEMOGLOBIN 8.2 g/dL (12.0-16.0); LYMPHOCYTES # (AUTO) 1.1 10^3/uL (1.5-3.5); LYMPHOCYTES % (AUTO) 17.3 %; MEAN CORPUSCULAR HEMOGLOBIN 30.7 pg (27.0-31.0); MEAN CORPUSCULAR HGB CONC 33.1 g/dL (32.0-36.0); MEAN CORPUSCULAR VOLUME 92.9 fL (81.0-99.0); MONOCYTES # (AUTO) 0.5 10^3/uL (0.0-1.0); MONOCYTES % (AUTO) 7.7 %; NEUTROPHILS # (AUTO) 4.6 10^3/uL (1.5-6.6); NEUTROPHILS % (AUTO) 72.7 %; PLT - PLATELET COUNT 171 10^3/uL (130-450); RED BLOOD COUNT 2.67 10^6/uL (4.20-5.40); RED CELL DISTRIBUTION WIDTH 14.2 % (12.0-15.0); WHITE BLOOD COUNT 6.3 x10^3/uL (4.8-10.8)
[2018-11-02 06:35] LABS: BUN - BLOOD UREA NITROGEN < 5 mg/dL (6-20); CALCIUM 7.7 mg/dL (8.5-10.3); CARBON DIOXIDE - CO2 24 mmol/L (21-32); CHLORIDE 110 mmol/L (101-111); CREATININE 0.5 mg/dL (0.4-1.0); GFR - MDRD 160 (>89); GLUCOSE 104 mg/dL (70-100); SODIUM 139 mmol/L (135-145)
[2018-11-02 06:40] LABS: VBG PH 7.451 (7.31-7.41)
[2018-11-02] MEDS: FERROUS SULFATE 300 MG/5 ML UDC PO SCH (08:41)
[2018-11-02] MEDS: DOCUSATE SODIUM 100 MG CAPSULE PO SCH ×2 (08:41→20:52)
[2018-11-02] MEDS ORDERED: POLYETHYLENE GLYCOL 3350 17 GM PACKET PO SCH (09:00)
[2018-11-02] MEDS ORDERED: POTASSIUM CHLORIDE 20 MEQ TABLET PO SCH ×2 (09:05→10:20)
[2018-11-02] MEDS ORDERED: SODIUM CHLORIDE 0.9% 1,000 ML IV SCH (09:07)
--- NOTE | 2018-11-02 09:09 | PROVIDER PROGRESS NOTE ---
Assessment/Plan - Problem List (1) Postoperative fever Assessment/Plan: Will obtain CXR and U/A. Will reorder Incentive spirometry, to prevent fever from atelectasis. WBC not rising, will not recommend new antibiotic treatment. Follow WBC daily (2) Post-op bleeding Assessment/Plan: Hgb plateaued at 8-8.5. Continue oral iron replacement. Follow CBC daily. (3) S/P laparoscopic hysterectomy Assessment/Plan: Her ileus has resolved and she is tolerating a low fiber Reg diet. Incentive Spirometry was not continued as she left the ICU, will reorder. Will begin OOB to chair. (4) Hypokalemia Assessment/Plan: Will add oral K replacement today. Follow serum K. (5) Hx of essential hypertension Assessment/Plan: Continue to decrease iv saline hydration. (6) Hx of Crohn's disease Assessment/Plan: No active symptoms currently. (7) Hemorrhagic shock Assessment/Plan: Resolved - Current Meds Current Meds: Current Medications Generic Name Dose Route Start Last Admin Trade Name Freq PRN Reason Stop Dose Admin Docusate Sodium 100 mg 10/30/18 21:00 11/02/18 08:41 Colace 100mg Capsule PO 100 mg BID ALEXI Administration Ferrous Sulfate 300 mg 11/01/18 08:00 11/02/18 08:41 Feosol Liquid PO 300 mg DAILYWM ALEXI Administration Hydromorphone HCl 0.5 mg 10/31/18 02:45 10/31/18 15:20 Dilaudid Inj Syringe IVP 0.5 mg Q3H PRN Administration Breakthrough Pain Ketorolac Tromethamine 30 mg 10/30/18 17:28 10/31/18 09:21 Toradol Inj (30mg) IVP 11/04/18 17:27 30 mg Q6HR PRN Administration PAIN Ondansetron HCl 4 mg 10/30/18 17:27 10/30/18 18:44 Zofran Inj IVP 4 mg Q6HR PRN Administration Nausea / Vomiting Oxycodone HCl 10 mg 10/30/18 17:27 11/02/18 02:53 Roxicodone PO 10 mg Q4HR PRN Administration PAIN Polyethylene Glycol 17 gm 11/02/18 09:00 11/02/18 08:42 Miralax PO Not Given DAILY ALEXI Sodium Chloride 10 ml 10/31/18 22:41 11/01/18 04:10 Normal Saline Flush 0.9% IVP 20 ml PRN PRN Administration NEEDED PER PROVIDER ORDERS - Lab Result Fish Bone Diagrams: 11/02/18 06:12 11/02/18 15:32 - Additional Planning My Orders: My Active Orders 11/01/18 Dinner DIET [Soft (Low Fiber) Diet] [DIET] 11/02/18 09:00 Polyethylene Glycol 3350 [Miralax] 17 gm PO DAILY 11/02/18 09:04 Chest 1 View X-Ray [XR] Routine 11/02/18 09:05 IS [Incentive Spirometry - RT] [RC] TID Potassium Chloride [K-Dur] 40 meq PO ONCE ONE 11/02/18 09:07 Sodium Chloride 0.9% [Normal Saline 0.9%] 1,000 ml IV 40 mls/hr 11/02/18 15:00 POTASSIUM [CHEM] Timed 11/03/18 05:00 CBC - COMP BLD CT W/AUTO DIFF [HEME] DAILYLAB Subjective - Subjective Patient Reports: No Complaints Objective Vital Signs: Vital Signs - 24 hr 11/01/18 11/01/18 11/01/18 11:01 13:20 15:31 Temperature 37.4 C 37.5 C 37.6 C H Heart Rate 101 H Heart Rate [ 99 109 H Brachial] Respiratory 18 16 18 Rate Blood Pressure 123/71 143/78 H [Right Brachial artery] O2 Saturation 97 97 98 11/01/18 11/01/18 11/02/18 20:00 23:35 03:05 Temperature 37.6 C H 37.5 C 37.4 C Heart Rate Heart Rate [ 110 H 108 H 109 H Brachial] Respiratory 18 16 16 Rate Blood Pressure 140/70 H 141/75 H 144/75 H [Right Brachial artery] O2 Saturation 96 96 98 11/02/18 08:03 Temperature 37.5 C Heart Rate Heart Rate [ 93 Brachial] Respiratory 16 Rate Blood Pressure 127/80 [Right Brachial artery] O2 Saturation 97 Oxygen O2 Source Room air I&O (Last 24 Hrs): Intake and Output Totals x24h 10/31/18 11/01/18 11/02/18 23:59 23:59 23:59 Intake Total 5085 2285 540 Output Total 1535 2800 1100 Balance 1980 -515 -610 General: Alert HEENT: Mucous membr. moist/pink Neck: Supple Neuro: Non Focal Cardiovascular: Regular rate Respiratory: No respiratory distress Abdomen: Soft Extremities: No edema - Results Results: Laboratory Results WBC 6.3 x10^3/uL (4.8-10.8) 11/02/18 06:12 RBC 2.67 10^6/uL (4.20-5.40) L 11/02/18 06:12 Hgb 8.2 g/dL (12.0-16.0) L 11/02/18 06:12 Hct 24.8 % (37.0-47.0) L 11/02/18 06:12 MCV 92.9 fL (81.0-99.0) 11/02/18 06:12 MCH 30.7 pg (27.0-31.0) 11/02/18 06:12 MCHC 33.1 g/dL (32.0-36.0) 11/02/18 06:12 RDW 14.2 % (12.0-15.0) 11/02/18 06:12 Plt Count 171 10^3/uL (130-450) 11/02/18 06:12 MPV 10.0 fL (7.9-10.8) 11/02/18 06:12 Neut # (Auto) 4.6 10^3/uL (1.5-6.6) 11/02/18 06:12 Lymph # (Auto) 1.1 10^3/uL (1.5-3.5) L 11/02/18 06:12 [place] # (Auto) 0.5 10^3/uL (0.0-1.0) 11/02/18 06:12 Eos # (Auto) 0.1 10^3/uL (0.0-0.7) 11/02/18 06:12 Baso # (Auto) 0.0 10^3/uL (0.0-0.1) 11/02/18 06:12 Absolute Nucleated RBC 0.00 x10^3/uL 11/02/18 06:12 Nucleated RBC % 0.0 /100WBC 11/02/18 06:12 PT 13.7 secs (9.9-12.6) H 10/31/18 05:10 INR 1.2 (0.8-1.2) 10/31/18 05:10 VBG pH 7.451 (7.31-7.41) H 11/02/18 06:12 Ionized Calcium 1.07 mmol/L (1.15-1.33) L 11/02/18 06:12 Sodium 139 mmol/L (135-145) 11/02/18 06:12 Potassium 3.2 mmol/L (3.5-5.0) L 11/02/18 06:12 Chloride 110 mmol/L (101-111) 11/02/18 06:12 Carbon Dioxide 24 mmol/L (21-32) 11/02/18 06:12 Anion Gap 5.0 (6-13) L 11/02/18 06:12 BUN < 5 mg/dL (6-20) L 11/02/18 06:12 Creatinine 0.5 mg/dL (0.4-1.0) 11/02/18 06:12 Estimated GFR (MDRD) 160 (>89) 11/02/18 06:12 Glucose 104 mg/dL (70-100) H 11/02/18 06:12 Calcium 7.7 mg/dL (8.5-10.3) L 11/02/18 06:12 Ionized Calcium YES 11/02/18 06:12 Phosphorus 1.7 mg/dL (2.5-4.6) L 11/01/18 04:05 Magnesium 1.8 mg/dL (1.7-2.8) 11/01/18 04:05 Total Bilirubin 0.5 mg/dL (0.2-1.0) 11/01/18 04:05 Direct Bilirubin 0.1 mg/dL (0.1-0.5) 11/01/18 04:05 AST 27 IU/L (10-42) 11/01/18 04:05 ALT 13 IU/L (10-60) 11/01/18 04:05 Alkaline Phosphatase 39 IU/L (42-121) L 11/01/18 04:05 Total Protein 4.8 g/dL (6.7-8.2) L 11/01/18 04:05 Albumin 2.5 g/dL (3.2-5.5) L 11/01/18 04:05 Globulin 2.3 g/dL (2.1-4.2) 11/01/18 04:05 Ur Specific [place] 1.020 (1.002-1.030) 10/30/18 09:26 Urine HCG, Qual NEGATIVE 10/30/18 09:26 Nasal Screen MRSA (PCR) NEGATIVE (NEGATIVE) 10/31/18 05:15
[2018-11-02] MEDS ORDERED: PETROLATUM WHITE 5 GM PACKET TOP ONE (10:41)
--- NOTE | 2018-11-02 11:37 | XRAY Report ---
Reason: Fever POD #3, eval for pneumonia Procedure Date: 11/02/2018 Accession Number: [id number] / [id number] Procedure: XR - Chest 1 View X-Ray CPT Code: 47606 FULL RESULT: EXAM: CHEST RADIOGRAPHY EXAM DATE: 11/02/2018 09:20 AM. CLINICAL HISTORY: Fever POD 3, eval for pneumonia. COMPARISON: CHEST FOR LINE PLACEMENT 10/30/2018 10:32 PM. TECHNIQUE: 1 view. FINDINGS: Lungs/Pleura: Opacities in the left lung base medially with silhouetting of the left hemidiaphragm are new from the prior examination. The right lung remains well-aerated and clear. Mediastinum: Within exam limitations, the cardiomediastinal contour is normal. Other: None. IMPRESSION: Opacities in the left lung base medially may represent atelectasis, aspiration or infectious process. A PA and lateral chest radiograph may be of benefit to further characterize this finding. RADIA
[2018-11-02] MEDS ORDERED: FERRIC GLUCONATE 125 MG in SODIUM CHLORIDE 0.9% 100ML 100 ML IV ONE (12:00)
--- NOTE | 2018-11-02 12:38 | PROVIDER PROGRESS NOTE ---
Subjective - Prog Note Date Prog Note Date: 11/02/18 Prog Note Time: 09:27 - Subjective Pt reports feeling: Improved (Lillian is a 48-year-old G5, P6 status postop day 3 status post TLH and ex lap. She is doing well this morning. Tolerating regular diet. Up and ambulating, voiding, pain well managed. Hematocrit seems stable at 24.8. Has low-grade elevated temperature With peak temp at 99.5 but white blood cell count has been steady at 6.3 with no upward trend. Potassium remains low this morning. She is without complaint. She reports using incentive bedside incentive spirometer 10 times an hour.) Objective - Vital Signs/Intake & Output Vital Signs: Vital Signs x48h Temp Pulse Resp BP Pulse Ox 11/02/18 12:26 99.3 F 95 20 143/76 H 100 11/02/18 08:03 99.5 F 93 16 127/80 97 Intake & Output: Intake & Output 10/30/18 10/31/18 11/01/18 11/02/18 23:59 23:59 23:59 23:59 Intake Total 3855.65 5085 2285 540 Output Total 1037 1535 2800 1400 Balance 2818.65 3550 -515 -860 - Objective General Appearance: positive: No acute distress Eyes Bilateral: positive: Normal inspection Neck: positive: Nml inspection, Other (central line removed,) Respiratory: positive: Chest non-tender, No respiratory distress, Breath sounds nml, Other (Diminished at bases bilaterally) Cardiovascular: positive: Regular rate & rhythm Abdomen: positive: Non-tender, Nml bowel sounds, No distention, Other (Wound VAC in place. Work section is appropriate. Clean dry and intact. No longer draining.) Back: positive: Nml inspection Skin: positive: Color nml Extremities: positive: Non-tender, No pedal edema Neurologic/Psychiatric: positive: Oriented x3 - Lab Results Fish Bones: 11/02/18 06:12 11/02/18 06:12 Other Labs: Lab Results x24hrs 11/02/18 11/02/18 11/02/18 Range/Units 06:12 06:12 06:12 WBC 6.3 (4.8-10.8) x10^3/uL RBC 2.67 L (4.20-5.40) 10^6/uL Hgb 8.2 L (12.0-16.0) g/dL Hct 24.8 L (37.0-47.0) % MCV 92.9 (81.0-99.0) fL MCH 30.7 (27.0-31.0) pg MCHC 33.1 (32.0-36.0) g/dL RDW 14.2 (12.0-15.0) % Plt Count 171 (130-450) 10^3/uL MPV 10.0 (7.9-10.8) fL Neut # (Auto) 4.6 (1.5-6.6) 10^3/uL Lymph # (Auto) 1.1 L (1.5-3.5) 10^3/uL [place] # (Auto) 0.5 (0.0-1.0) 10^3/uL Eos # (Auto) 0.1 (0.0-0.7) 10^3/uL Baso # (Auto) 0.0 (0.0-0.1) 10^3/uL Absolute Nucleated RBC 0.00 x10^3/uL Nucleated RBC % 0.0 /100WBC VBG pH 7.451 H (7.31-7.41) Ionized Calcium 1.07 L YES (1.15-1.33) mmol/L Sodium 139 (135-145) mmol/L Potassium 3.2 L (3.5-5.0) mmol/L Chloride 110 (101-111) mmol/L Carbon Dioxide 24 (21-32) mmol/L Anion Gap 5.0 L (6-13) BUN < 5 L (6-20) mg/dL Creatinine 0.5 (0.4-1.0) mg/dL Estimated GFR (MDRD) 160 (>89) Glucose 104 H (70-100) mg/dL Calcium 7.7 L (8.5-10.3) mg/dL 11/01/18 Range/Units 15:00 WBC (4.8-10.8) x10^3/uL RBC (4.20-5.40) 10^6/uL Hgb (12.0-16.0) g/dL Hct (37.0-47.0) % MCV (81.0-99.0) fL MCH (27.0-31.0) pg MCHC (32.0-36.0) g/dL RDW (12.0-15.0) % Plt Count (130-450) 10^3/uL MPV (7.9-10.8) fL Neut # (Auto) (1.5-6.6) 10^3/uL Lymph # (Auto) (1.5-3.5) 10^3/uL [place] # (Auto) (0.0-1.0) 10^3/uL Eos # (Auto) (0.0-0.7) 10^3/uL Baso # (Auto) (0.0-0.1) 10^3/uL Absolute Nucleated RBC x10^3/uL Nucleated RBC % /100WBC VBG pH (7.31-7.41) Ionized Calcium (1.15-1.33) mmol/L Sodium (135-145) mmol/L Potassium 4.1 (3.5-5.0) mmol/L Chloride (101-111) mmol/L Carbon Dioxide (21-32) mmol/L Anion Gap (6-13) BUN (6-20) mg/dL Creatinine (0.4-1.0) mg/dL Estimated GFR (MDRD) (>89) Glucose (70-100) mg/dL Calcium (8.5-10.3) mg/dL Assessment/Plan - Problem List (1) S/P laparoscopic hysterectomy Impression: Postop day 3 status post TLH/ex lap with acute blood loss anemia Postop: -Up and ambulating -Tolerating regular diet -Voiding with adequate output -Flatus without bowel movement to date -Pain met well managed with oral medications. Progressing well towards meeting goals for discharge. We will continue to monitor overnight given unstable electrolytes and mild elevation in temperature. Respiratory: -Reviewed importance of pulmonary toilet. We will continue to use IS 10 times an hour. . FEN: -Tolerating regular diet. -Hypokalemic this a.m. at 3.2. Has chronic hypokalemia secondary to Crohn's. Repleted with 40 mEq of potassium chloride po this a.m. -Serum calcium adjusts to normal range when accounting for hypoalbuminemia. Chronic hypoalbuminemia secondary to Crohn's. Struggles with maintaining protein intake at baseline No repletion indicated Acute blood loss anemia: -Status post transfusion with 2 units PRBC -Hematocrit stable between 24.8-26 over the last 24 hours. Low concern for ongoing blood loss -IV iron gluconate ordered this a.m. Discussed with patient. ID: -Slight elevation in temperature to max of 99.5 over the last few days. -White blood cell count has been stable at 6.3 with no upward trend. -Discussed atelectasis is likely because of mild increase in temperature. -We will continue to monitor Continue inpatient care
[2018-11-03 05:01] LABS: BASOPHILS % (AUTO) 0.4 %; EOSINOPHILS # (AUTO) 0.1 10^3/uL (0.0-0.7); EOSINOPHILS % (AUTO) 2.6 %; HGB - HEMOGLOBIN 8.4 g/dL (12.0-16.0); LYMPHOCYTES # (AUTO) 1.1 10^3/uL (1.5-3.5); LYMPHOCYTES % (AUTO) 21.2 %; MEAN CORPUSCULAR HEMOGLOBIN 30.8 pg (27.0-31.0); MEAN CORPUSCULAR HGB CONC 32.7 g/dL (32.0-36.0); MEAN CORPUSCULAR VOLUME 94.1 fL (81.0-99.0); MONOCYTES # (AUTO) 0.4 10^3/uL (0.0-1.0); NEUTROPHILS # (AUTO) 3.6 10^3/uL (1.5-6.6); NEUTROPHILS % (AUTO) 66.5 %; PLT - PLATELET COUNT 211 10^3/uL (130-450); RED BLOOD COUNT 2.73 10^6/uL (4.20-5.40); RED CELL DISTRIBUTION WIDTH 13.9 % (12.0-15.0); WHITE BLOOD COUNT 5.4 x10^3/uL (4.8-10.8)
[2018-11-03 07:38] VITALS: BP 130/76
[2018-11-03] MEDS: DOCUSATE SODIUM 100 MG CAPSULE PO SCH (09:09)
[2018-11-03] MEDS: FERROUS SULFATE 300 MG/5 ML UDC PO SCH (09:09)
[2018-11-03] MEDS: oxyCODONE 5 MG TABLET PO PRN (09:11)
--- NOTE | 2018-11-03 11:02 | PROVIDER PROGRESS NOTE ---
Subjective - Prog Note Date Prog Note Date: 11/03/18 Prog Note Time: 11:00 - Subjective Pt reports feeling: Improved Subjective: Ms. Canas is postop day 4 status post TLH/ex lap with acute blood loss anemia. She is doing quite well this morning. Up and ambulating, tolerating p.o., voiding, pain well managed. Wound VAC remains in place with minimal discharge. No vaginal bleeding. She states she is ready for discharge. Objective - Vital Signs/Intake & Output Vital Signs: Vital Signs x48h Temp Pulse Resp BP Pulse Ox 11/03/18 07:36 98.8 F 84 14 130/76 99 11/03/18 03:25 98.6 F 78 16 129/83 H 99 Intake & Output: Intake & Output 10/31/18 11/01/18 11/02/18 11/03/18 23:59 23:59 23:59 23:59 Intake Total 5085 2285 1500 1370 Output Total 1535 2800 2700 950 Balance 3550 -515 -1200 420 - Objective General Appearance: positive: No acute distress Neck: positive: Nml inspection Respiratory: positive: No respiratory distress Cardiovascular: positive: Regular rate & rhythm Abdomen: positive: Non-tender, No distention, Other (Wound VAC in place. Dressi ng clean, dry, and intact. No notable erythema or induration) Skin: positive: Color nml, Warm Extremities: positive: Non-tender, No pedal edema Neurologic/Psychiatric: positive: Oriented x3 - Lab Results Fish Bones: 11/03/18 04:45 11/02/18 15:32 Other Labs: Lab Results x24hrs 11/03/18 11/02/18 Range/Units 04:45 15:32 WBC 5.4 (4.8-10.8) x10^3/uL RBC 2.73 L (4.20-5.40) 10^6/uL Hgb 8.4 L (12.0-16.0) g/dL Hct 25.7 L (37.0-47.0) % MCV 94.1 (81.0-99.0) fL MCH 30.8 (27.0-31.0) pg MCHC 32.7 (32.0-36.0) g/dL RDW 13.9 (12.0-15.0) % Plt Count 211 (130-450) 10^3/uL MPV 10.0 (7.9-10.8) fL Neut # (Auto) 3.6 (1.5-6.6) 10^3/uL Lymph # (Auto) 1.1 L (1.5-3.5) 10^3/uL Bladen # (Auto) 0.4 (0.0-1.0) 10^3/uL Eos # (Auto) 0.1 (0.0-0.7) 10^3/uL Baso # (Auto) 0.0 (0.0-0.1) 10^3/uL Absolute Nucleated RBC 0.03 x10^3/uL Nucleated RBC % 0.6 /100WBC Potassium 3.4 L (3.5-5.0) mmol/L - Diagnostic Imaging Diagnostic Imaging Results: positive: Final report reviewed Assessment/Plan - Problem List (1) S/P laparoscopic hysterectomy Impression: Postop day 4 status post TLH/ex lap with acute blood loss anemia: Postop: -Meeting goals for discharge -Routine discharge instructions were given -Discussed care of wound VAC, written instructions were provided. -Has follow-up for wound assessment on with Dr. Rodriguez Anemia; delete; -Hematocrit stable at 25.7 -Continue oral iron; prescription provided. Respiratory; -Continue pulmonary toilet with I-S -Reviewed chest x-ray with patient -White blood cell count stable within normal range and temperature normal Discharge to home with follow-up within 4 days. Follow-up with Dr. Blackmon.
[2018-11-03] MEDS ORDERED: IBUPROFEN 600 MG TABLET PO SCH (12:00)
--- NOTE | 2018-11-13 09:37 | DISCHARGE SUMMARY ---
Physician: King Rodriguez MD DATE OF ADMISSION: 10/31/2018 DATE OF DISCHARGE: 11/03/2018 ADMITTING DIAGNOSES 1. Menorrhagia. 2. Fibroid uterus. DISCHARGE DIAGNOSES 1. Menorrhagia. 2. Fibroid uterus. 3. Postoperative hemorrhage. 4. Anemia. PROCEDURES 1. Total laparoscopic hysterectomy with bilateral salpingectomy and cystoscopy. 2. Central line placement. 3. Exploratory laparotomy. 4. Transfusion of 4 units of packed red blood cells and 2 units of fresh frozen plasma. PRESENTING HISTORY: Patient is a 48-year-old. She is 5, para 6. She is known to have multi ple fibroid uterus. She was having difficulty with menorrhagia, which was interfering with her life. She had an ultrasound, which demonstrated the same. She presented preop for laparoscopic hysterect francie with bilateral salpingectomy. Her history was unremarkable with the exception of some Crohn's di sease, which was inactive. LABORATORIES: Preoperative CBC showed a hemoglobin of 12.9, hematocrit was 40.6, platelets were 288. Prior to transfusion, her CBC was 9.9 with a hemoglobin of 32.8 immediately postop. Post-transfusi on her hemoglobin was 11.2. However, over time, this fell to a leeann of 8.1. On day of discharge, h er hemoglobin rebounded to 8.7. Her chem panel initially was normal; however, her potassium and fell to 3.0, but rebounded and on discharge was 3.4. Her PTT on the was 13.7, INR 1.2. HOSPITAL COURSE: Patient was admitted and taken to the operating room, at which time a total laparos copic hysterectomy with bilateral salpingectomy and cystoscopy was performed without incident. Care was to assure there was evidence of no bleeding postoperatively before finishing the case. She did w ell until that evening at which time she was found to be hypotensive, tachycardic, and with a tender abdomen. The presumptive diagnosis of an intra-abdominal hemorrhage was made and a central line was placed expeditiously, and she was taken to the operating room in a rapid fashion. She had a total of 4 units of blood transfused. An exploratory laparotomy was performed through a Pfannenstiel incisio n. There was a large amount of clot, which was evacuated from the abdomen. However, careful searchi ng of the pelvis did not identify any bleeders. This was done under careful inspection utilizing angelo rile water to increase the visualization. Surgicel was placed over the surgical scars. The procedur e was terminated and she was closed. She was taken to the ICU for close monitoring postoperatively. Postoperatively, she did quite well. She tolerated her anemia. She advanced her diet. She passed flatus. Her wound VAC functioned well. She was discharged to home on 11/03/2018. DISCHARGE MEDICATIONS 1. Oxycodone. 2. Motrin. 3. Colace. FOLLOWUP: She was instructed to follow up in the clinic the following week. TD: 11/13/2018 09:08
== END 2018-11-03 11:43 | disposition home or self-care (01) | DRG 742 ==
LOC: SDS 09:01 → MS2 18:43 → ICU 10-31 01:25 → SDS 10-31 02:37 → ICU 10-31 02:38 → MS2 10-31 15:58
PROVIDERS: ADMIT Internal Medicine; ATTEND Internal Medicine
PROC: 0UT9FZZ Resection of Uterus, Via Natural or Artificial Opening With Percutaneous Endoscopic Assistance (ICD-10-PCS; principal; 2018-10-31)
PROC: 0W3R0ZZ Control Bleeding in Genitourinary Tract, Open Approach (ICD-10-PCS; 2018-10-31)
PROC: 0UT74ZZ Resection of Bilateral Fallopian Tubes, Percutaneous Endoscopic Approach (ICD-10-PCS; 2018-10-31)
PROC: 0UT24ZZ Resection of Bilateral Ovaries, Percutaneous Endoscopic Approach (ICD-10-PCS; 2018-10-31)
DX: D25.1 Intramural leiomyoma of uterus (principal); T81.19XA Other postprocedural shock, initial encounter; N99.820 Postprocedural hemorrhage of a genitourinary system organ or structure following a genitourinary system procedure; D62 Acute posthemorrhagic anemia; K50.90 Crohn's disease, unspecified, without complications; D25.0 Submucous leiomyoma of uterus; N80.0 Endometriosis of uterus; N83.291 Other ovarian cyst, right side; N83.201 Unspecified ovarian cyst, right side; I95.9 Hypotension, unspecified; E87.6 Hypokalemia; R50.82 Postprocedural fever; M19.90 Unspecified osteoarthritis, unspecified site; Y83.6 Removal of other organ (partial) (total) as the cause of abnormal reaction of the patient, or of later complication, without mention of misadventure at the time of the procedure; I10 Essential (primary) hypertension; Y92.234 Operating room of hospital as the place of occurrence of the external cause; Z86.001 Personal history of in-situ neoplasm of cervix uteri
CPT/HCPCS: 36415; 71045; 80048; 80076; 81025; 82330; 83735; 84100; 84132; 85014; 85018; 85025; 85027; 85610; 87150; A9270; J0131; J0690; J1170; J2916; J7040; J7120; 81001; 86850; 86900; 86901; 86920; 87086

== ENCOUNTER 2020-02-16 07:59 | Outpatient (CLI) | payer OTHER ==
--- NOTE | 2020-02-16 16:08 | XRAY Report ---
PROCEDURE: Shoulder 3 View RT INDICATIONS: RT SHOULDER PAIN TECHNIQUE: 3 views of the shoulder were acquired. COMPARISON: None. FINDINGS: Bones: No fractures or dislocations. No suspicious bony lesions. Visualized ribs appear intact. M inimal acromioclavicular joint and glenohumeral joint osteoarthritis. Soft tissues: No suspicious soft tissue calcifications. IMPRESSION: No fracture. No acute osseous lesion. If there persistent symptoms or continued clinical concern for pathology, then repeat plain film radiographs (7-10 days) or advanced imaging (CT, MR, bone scan) ty uld be considered for further evaluation. Reviewed by: Kajal Moreno MD, PhD on 02/16/2020 4:06 PM [facility] [[email or web address]] Approved by: Kajal Moreno MD, PhD on 02/16/2020 4:06 PM [facility] [[email or web address]] Station ID: [id number]
== END 2020-02-16 08:00 | disposition home or self-care (01) ==
LOC: DI 07:59
PROVIDERS: ATTEND Nurse Practitioner
DX: M25.511 Pain in right shoulder (principal)

== ENCOUNTER 2020-03-09 10:34 | Outpatient (CLI) | payer OTHER ==
--- NOTE | 2020-03-10 12:28 | Mammography Report ---
BILATERAL DIGITAL SCREENING MAMMOGRAM 3D/2D: 03/09/2020 CLINICAL: Family history of breast cancer. Routine screening. Comparison is made to exams dated: 10/12/2016 mammogram, 07/22/2015 mammogram, and 10/03/2013 mammogram - [facility]. The tissue of both breasts is heterogeneously dense. This may lower the sensitivity of mammography. No significant masses, calcifications, or other findings are seen in either breast. There has been no significant interval change. IMPRESSION: NEGATIVE There is no mammographic evidence of malignancy. A 1 year screening mammogram is recommended. This exam was interpreted at Station ID: [id number]. NOTE: For mammograms, a report in lay terms will be sent to the patient. Approximately 15% of breast malignancies will not be visualized mammographically. In the management of a palpable breast mass, a negative mammogram must not discourage biopsy of a clinically suspicious lesion. Electronically Signed By: Chepe Zhu M.D. ar/penrad:03/09/2020 11:36:10 ACR BI-RADS Category 1: Negative 3341F PARENCHYMAL PATTERN: (D) - The breast(s) demonstrate(s) heterogeneously dense fibroglandular nicky garcia. BI-RADS CATEGORY: (1) - 1 RECOMMENDATION: (ANNUAL) - Recommend routine annual screening mammography. [id number] 1 year screening LATERALITY: (B)
== END 2020-03-09 10:35 | disposition home or self-care (01) ==
LOC: DI.N 10:34
PROVIDERS: ATTEND Nurse Practitioner
DX: Z12.31 Encounter for screening mammogram for malignant neoplasm of breast (principal); Z80.3 Family history of malignant neoplasm of breast
CPT/HCPCS: 77067

== ENCOUNTER 2021-07-06 09:47 | Outpatient (CLI) | payer OTHER ==
--- NOTE | 2021-07-06 16:25 | XRAY Report ---
PROCEDURE: Knee 3 View RT INDICATIONS: OSTEOARTHRITIS, R KNEE TECHNIQUE: 3 views of the right knee(s) were acquired. COMPARISON: None. FINDINGS: Bones: No fractures or dislocations. Tricompartmental osteophytes consistent with osteoarthritis. N o suspicious bony lesions. No joint space narrowing. Soft tissues: No joint effusion. No suspicious soft tissue calcifications. IMPRESSION: Tricompartmental osteophytes consistent with osteoarthritis. Reviewed by: Cheng Tejada on 07/06/2021 4:24 PM PDT Approved by: Cheng Tejada on 07/06/2021 4:24 PM PDT Station ID: [id number]
== END 2021-07-06 09:48 | disposition home or self-care (01) ==
LOC: DI.N 09:47
PROVIDERS: ATTEND Family Medicine
DX: M17.11 Unilateral primary osteoarthritis, right knee (principal)

== ENCOUNTER 2022-01-12 08:32 | Outpatient (CLI) | payer OTHER ==
--- NOTE | 2022-01-13 15:39 | Mammography Report ---
BILATERAL DIGITAL SCREENING MAMMOGRAM 3D/2D: 01/12/2022 CLINICAL: Family history of breast cancer. Routine screening. Comparison is made to exams dated: 03/09/2020 mammogram and 10/12/2016 mammogram - [facility]. Both breasts are heterogeneously dense, which may obscure small masses (category c / 51-75% glandular tissue). No significant masses, calcifications, or other findings are seen in either breast. There has been no significant interval change. IMPRESSION: NEGATIVE There is no mammographic evidence of malignancy. A 1 year screening mammogram is recommended. This exam was interpreted at Station ID: [id number]. NOTE: For mammograms, a report in lay terms will be sent to the patient. Approximately 15% of breast malignancies will not be visualized mammographically. In the management of a palpable breast mass, a negative mammogram must not discourage biopsy of a clinically suspicious lesion. Electronically Signed By: Chepe Zhu M.D. ar/penrad:01/12/2022 14:46:48 ACR BI-RADS Category 1: Negative 3341F PARENCHYMAL PATTERN: (D) - The breast(s) demonstrate(s) heterogeneously dense fibroglandular paromeroy ma. BI-RADS CATEGORY: (1) - 1 RECOMMENDATION: (ANNUAL) - Recommend routine annual screening mammography. [id number] 1 year screening LATERALITY: (B)
== END 2022-01-12 08:33 | disposition home or self-care (01) ==
LOC: DI.N 08:32
PROVIDERS: ATTEND Family Medicine
DX: Z12.31 Encounter for screening mammogram for malignant neoplasm of breast (principal); Z80.3 Family history of malignant neoplasm of breast